=== PATIENT | male | born 1925 | race Caucasian/White ===

== ENCOUNTER 2016-12-24 11:44 | Day surgery (SDC) | payer MEDICARE, BC ==
[~2016-12-24 11:44] MED LIST: ACIP20TA19 PO; AMLO5TAB96 PO; CELE200 PO; COUM2TAB PO; DIOV320T PO; LEVO.075 PO; PACE200T4 PO; PRIN20TA2 PO; TERA5CAP34 PO; ZOCO40TA PO; [UNRECOGNIZED DRUG - OTHER]
[2016-12-24 12:57] VITALS: BP 178/78; PULSE 51; RESP 14; TEMP 97.2; O2SAT 97
[2016-12-24 13:35] VITALS: BP 180/84; PULSE 67; RESP 20; TEMP 97.5; O2SAT 99
[2016-12-24] MEDS ORDERED: LIDOCAINE HCL 1% 20 ML VIAL ONE (13:41)
[2016-12-24 13:50] VITALS: BP 187/85; PULSE 68; RESP 18; O2SAT 98
--- NOTE | 2016-12-24 15:14 | RADRPT ---
EXAM DATE/TIME: 12/24/2016 12:25 [facility] COMPARISON: No previous studies available for comparison. INDICATIONS : Right neck enlarged lymph node. MEDICAL HISTORY : Hypertension. Hypothyroidism. Hypercholesterolemia. SURGICAL HISTORY : Cardiac stents. Back surgery. ENCOUNTER: Subsequent ACUITY: 2 weeks PAIN SCORE: 10/10 LOCATION: Right neck. ORGAN: Right lymph node SPECIMENS: Three core specimen(s) submitted for pathologic evaluation. DEVICE: 18 gauge Temno needle Post procedure scanning reveals no hematoma or other complication. The possibility does exist that the tissue obtained will be non-diagnostic. If the sample is non-jorge gnostic a repeat biopsy or surgical biopsy may need to be performed. TECHNIQUE: 1. Ultrasound guidance for needle biopsy. 2. Needle biopsy. The risks, benefits and alternatives to the procedure were explained and verbal and written consent w as obtained. The site was prepped in sterile fashion. Full sterile technique was used, including ca p, mask, sterile gloves and gown and a large sterile sheet. Hand hygiene and 2% chlorhexidine and/or betadine/alcohol prep was utilized per protocol for cutaneous antisepsis. The skin and subcutaneous tissues were infiltrated with local anesthetic solution. Sterile gel and sterile probe cover were u tilized for ultrasound guidance. With the patient on the ultrasound table, images were obtained. A needle was advanced into the identified target and the number of specimens as above obtained and abreu bmitted for pathologic evaluation. The patient tolerated the procedure well and left the ultrasound suite in stable condition. CONCLUSION: Uncomplicated ultrasound guided needle biopsy of enlarged lymph node right posterior neck. Jt Cuellar MD on December 24, 2016 at 15:13 Board Certified Radiologist. This report was verified electronically.
== END 2016-12-24 14:15 | disposition home or self-care (01) ==
LOC: HRAD 11:44
PROVIDERS: ATTEND Internal Medicine
DX: R59.0 Localized enlarged lymph nodes (principal); I10 Essential (primary) hypertension; E78.00 Pure hypercholesterolemia, unspecified; E03.9 Hypothyroidism, unspecified
CPT/HCPCS: 38505; 76942; 88184; 88185; 88305

== ENCOUNTER 2017-06-29 13:14 | Observation (INO) | payer MEDICARE, BC ==
[~2017-06-29] VITALS: Ht 180.3 cm; Wt 67.3 kg
[2017-06-29] VITALS (7 sets, daily range): BP systolic 141–179; BP diastolic 67–80; PULSE 54–65; RESP 17–20; TEMP 97.2–98; O2SAT 95–100
[2017-06-29] MEDS ORDERED: SODIUM CHLORIDE 0.9% FLUSH 10 ML FLUSH IVF PRN (13:30)
[2017-06-29] MEDS ORDERED: HEPARIN SODIUM - IV 10,000 UNITS/10 ML VIAL IV ONE (13:30)
[2017-06-29] MEDS ORDERED: HEPARIN-D5W 25,000 U/250 ML 250 ML IV PRN (13:45)
[2017-06-29 14:00] LABS: AUTOMATED NEUTROPHIL # 5.3 TH/MM3 (1.8-7.7); BASOPHIL % 0.5 % (0.0-2.0); EOSINOPHIL # 0.1 TH/MM3 (0-0.4); EOSINOPHIL % 1.6 % (0.0-4.0); HEMATOCRIT 38.2 % (39.0-51.0); HEMOGLOBIN 13.2 GM/DL (13.0-17.0); LYMPH % 7.4 % (9.0-44.0); LYMPHOCYTE # 0.5 TH/MM3 (1.0-4.8); MEAN CELL VOLUME 84.8 FL (80.0-100.0); MEAN CORPUSCULAR HEMOGLOBIN 29.2 PG (27.0-34.0); MEAN CORPUSCULAR HGB CONC 34.5 % (32.0-36.0); MEAN PLATELET VOLUME 7.7 FL (7.0-11.0); MONO % 10.2 % (0.0-8.0); MONOCYTE # 0.7 TH/MM3 (0-0.9); NEUT % 80.3 % (16.0-70.0); PLATELET COUNT 232 TH/MM3 (150-450); RED CELL DISTRIBUTION WIDTH 14.7 % (11.6-17.2); WHITE BLOOD COUNT 6.5 TH/MM3 (4.0-11.0)
[2017-06-29 14:12] LABS: INTERNATIONAL NORMALIZED RATIO 1.2 RATIO; PROTHROMBIN TIME - PATIENT 11.7 SEC (9.8-11.6)
[2017-06-29 14:16] LABS: BLOOD UREA NITROGEN 21 MG/DL (7-18); CALCIUM 9.2 MG/DL (8.5-10.1); CHLORIDE 108 MEQ/L (98-107); GLOMERULAR FILTRATION RATE 70 ML/MIN (>89); GLUCOSE,RANDOM 104 MG/DL (74-106); MAGNESIUM 2.4 MG/DL (1.5-2.5); SODIUM (NA) 141 MEQ/L (136-145)
[2017-06-29 14:19] LABS: TROPONIN I LESS THAN 0.02 NG/ML (0.02-0.05)
--- NOTE | 2017-06-29 14:49 | PD ---
HPI Chief Complaint: Chest Pain Time Seen by Provider: 13:27 Travel History International Travel<30 days: No Contact w/Intl Traveler<30days: No Traveled to known affect area: No History of Present Illness HPI 89-year-old male came to the emergency room with history of sudden onset chest pain while he was in the waiting room to get his radiation therapy for his cancer. Patient points to her substernal area and said the pain started radiating towards his left chest. He got up and alerted one of the nurses who called 911. Patient was in [place] when this happened. EMS gave him sublingual nitroglycerin and aspirin. By the time patient arrived in the emergency room pain was 0. He denies any associated symptoms. Vital signs were stable. Patient has history of coronary artery disease and says that he had a stent put in about 3-4 years ago. Patient says his flexographic press operator is Dr. Cornejo. Vital signs were stable. PFSH Past Medical History Narrative Medical List of his past medical, surgical, social and family history is reviewed from the nursing note. Hx Anticoagulant Therapy: Yes Arthritis: Yes Blood Disorders: No Heart Rhythm Problems: Yes (ATR. FIB) Cancer: Yes (LUNG) Cardiovascular Problems: Yes Chemotherapy: Yes Endocrine: No Genitourinary: No Hypertension: Yes Immune Disorder: No Implanted Vascular Access Dvce: Yes Musculoskeletal: Yes Neurologic: Yes Psychiatric: No Reproductive: No Respiratory: Yes Radiation Therapy: Yes Tetanus Vaccination: < 5 Years Influenza Vaccination: Yes Past Surgical History Eye Surgery: Yes (VANESA. CATARACT EXTRACT.) Neurologic Surgery: Yes (CERVICAL FUSION) Other Surgery: Yes Social History Alcohol Use: Yes (WINE DAILY) Tobacco Use: No Substance Use: No Allergies-Medications (Allergen,Severity, Reaction): Coded Allergies: No Known Allergies (Verified Allergy, Unknown, 06/29/17) Comments No known drug allergies. Reported Meds & Prescriptions Reported Meds & Active Scripts Active Reported Diltiazem ER 24 HR 240 Mg Sybil 240 Mg PO DAILY Amiodarone (Amiodarone HCl) 200 Mg Tab 200 Mg PO DAILY Levothyroxine (Levothyroxine Sodium) 75 Mcg Tab 75 Mcg PO DAILY Warfarin 5 Mg Tab 5 Mg PO DAILY Aspirin Unknown Strength Tab 1 Tab PO DAILY Narrative Medication List of his home medications reviewed from the nursing note. Review of Systems Except as stated in HPI: all other systems reviewed are Neg Cardiovascular: Positive: Chest Pain or Discomfort Physical Exam Narrative GENERAL: Awake, alert, elderly, frail, anxious SKIN: Focused skin assessment warm/dry. HEAD: Atraumatic. Normocephalic. EYES: Pupils equal and round. No scleral icterus. No injection or drainage. ENT: No nasal bleeding or discharge. Mucous membranes pink and moist. NECK: Trachea midline. No JVD. CARDIOVASCULAR: Regular rate and rhythm. No murmur appreciated. RESPIRATORY: No accessory muscle use. Clear to auscultation. Breath sounds equal bilaterally. GASTROINTESTINAL: Abdomen soft, non-tender, nondistended. Hepatic and splenic margins not palpable. MUSCULOSKELETAL: No obvious deformities. No clubbing. No cyanosis. No edema. NEUROLOGICAL: Awake and alert. No obvious cranial nerve deficits. Motor grossly within normal limits. Normal speech. PSYCHIATRIC: Appropriate mood and affect; insight and judgment normal. Data Data Last Documented VS Orders Orders Electrocardiogram (06/29/17 13:29) Basic Metabolic Panel (Bmp) (06/29/17 13:29) Ckmb (Isoenzyme) Profile (06/29/17 13:29) Complete Blood Count With Diff (06/29/17 13:29) Magnesium (Mg) (06/29/17 13:29) Prothrombin Time / Inr (Pt) (06/29/17 13:29) Act Partial Throm Time (Ptt) (06/29/17 13:29) Troponin I (06/29/17 13:29) Ecg Monitoring (06/29/17 13:29) Bilateral Bp Monitoring (06/29/17 13:29) Iv Access Insert/Monitor (06/29/17 13:29) Oximetry (06/29/17 13:29) Oxygen Administration (06/29/17 13:29) Sodium Chloride 0.9% Flush (Ns Flush) (06/29/17 13:30) Chest, Pa & Lat (06/29/17 13:29) Heparin Inj (Heparin Inj) (06/29/17 13:30) Heparin Inj (Heparin Inj) (06/29/17 19:30) Heparin Inj (Heparin Inj) (06/29/17 19:30) Heparin-D5w 25,000 U/250 Ml (Heparin-D5w (06/29/17 13:45) Act Partial Throm Time (Ptt) (06/29/17 20:30) Admit Order (Ed Use Only) (06/29/17 14:50) Labs Laboratory Tests Test 06/29/17 13:45 White Blood Count 6.5 TH/MM3 Red Blood Count 4.50 MIL/MM3 Hemoglobin 13.2 GM/DL Hematocrit 38.2 % Mean Corpuscular Volume 84.8 FL Mean Corpuscular Hemoglobin 29.2 PG Mean Corpuscular Hemoglobin Concent 34.5 % Red Cell Distribution Width 14.7 % Platelet Count 232 TH/MM3 Mean Platelet Volume 7.7 FL Neutrophils (%) (Auto) 80.3 % Lymphocytes (%) (Auto) 7.4 % Monocytes (%) (Auto) 10.2 % Eosinophils (%) (Auto) 1.6 % Basophils (%) (Auto) 0.5 % Neutrophils # (Auto) 5.3 TH/MM3 Lymphocytes # (Auto) 0.5 TH/MM3 Monocytes # (Auto) 0.7 TH/MM3 Eosinophils # (Auto) 0.1 TH/MM3 Basophils # (Auto) 0.0 TH/MM3 CBC Comment DIFF FINAL Differential Comment Prothrombin Time 11.7 SEC Prothromb Time International Ratio 1.2 RATIO Activated Partial Thromboplast Time 25.5 SEC Blood Urea Nitrogen 21 MG/DL Creatinine 1.00 MG/DL Random Glucose 104 MG/DL Calcium Level 9.2 MG/DL Magnesium Level 2.4 MG/DL Sodium Level 141 MEQ/L Potassium Level 3.8 MEQ/L Chloride Level 108 MEQ/L Carbon Dioxide Level 22.0 MEQ/L Anion Gap 11 MEQ/L Estimat Glomerular Filtration Rate 70 ML/MIN Total Creatine Kinase 70 U/L Troponin I LESS THAN 0.02 NG/ML MDM Medical Decision Making Medical Screen Exam Complete: Yes Emergency Medical Condition: Yes Medical Record Reviewed: Yes Interpretation(s) Twelve-lead EKG was reviewed by me. Normal sinus rhythm, normal axis, right bundle branch block, septal ST depressions that are new since 2008 EKG. Heart rate of 62 bpm. Differential Diagnosis ACS, non-STEMI Narrative Course 2:45 PM I discussed the case after looking at the EKG with patient's flexographic press operator Dr. Aggarwal. I started the patient on heparin bolus and drip and the flexographic press operator was in agreement with this plan. He wanted the patient to be admitted to the hospitalist service and he will consult on the patient. Blood test results of back and they're within acceptable limits. I discussed the case with the hospitalist was accepted the patient. Critical Care Narrative Aggregate critical care time was 30 minutes. Time to perform other separately billable procedures was not included in the critical care time. My time did not include minutes spent treating any other patients simultaneously or on activities that did not directly contribute to the patient's treatment. The services I provided to this patient were to treat and/or prevent clinically significant deterioration that could result in: ACS, heparin bolus and drip I provided critical care services requiring my management, as noted below: Chart data review, documentation time, medication orders and management, vital sign assessments/reviewing monitor data, ordering and reviewing lab tests, ordering and interpreting/reviewing x-rays and diagnostic studies, care of the patient and discussion of the patient with the admitting physicians. Procedures EKG Prior to Arrival: Yes Physician Communication Physician Communication Dr. Aggarwal Diagnosis Primary Impression: Chest pain Qualified Codes: R07.9 - Chest pain, unspecified Additional Impression: History of coronary artery disease Admitting Information Admitting Physician Requests: Observation Scripts Isosorbide Mononitrate ER (Isosorbide Mononitrate ER) 30 Mg Sybil 30 MG PO DAILY@07 for Chest Pain for 30 Days, #30 TAB Prov: Omid Singh MD 07/01/17 Atorvastatin (Atorvastatin) 80 Mg Tab 80 MG PO DAILY for ACS for 30 Days, #30 TAB Prov: Omid Singh MD 07/01/17 Clopidogrel (Plavix) 75 Mg Tab 75 MG PO DAILY for ACS for 30 Days, #30 TAB 1 Refill Prov: Omid Singh MD 07/01/17 Joyce Pisano MD Jun 29, 2017 14:49
[2017-06-29] MEDS ORDERED: ACETAMINOPHEN 325 MG TAB PO PRN (15:00)
[2017-06-29] MEDS ORDERED: DOCUSATE SODIUM 100 MG CAP PO PRN (15:00)
[2017-06-29] MEDS ORDERED: NITROGLYCERIN 0.4 MG SL 25 TABS/BTL SL PRN (15:00)
[2017-06-29] MEDS ORDERED: MORPHINE SULFATE 4 MG/ML INJ IV PUSH PRN (15:00)
--- NOTE | 2017-06-29 15:00 | RADRPT ---
EXAM DATE/TIME: 06/29/2017 14:26 [facility] COMPARISON: No previous studies available for comparison. INDICATIONS : Chest pain and cough. MEDICAL HISTORY : Pt. is undergoing lung cancer treatment. SURGICAL HISTORY : None. ENCOUNTER: Initial ACUITY: 1 day PAIN SCORE: 9/10 LOCATION: Bilateral chest FINDINGS: PA and lateral views of the chest demonstrate the lungs to be symmetrically aerated without evidence of mass, infiltrate or effusion. The cardiomediastinal contours are unremarkable. Osseous structure s are intact. CONCLUSION: No acute disease. Cecilio Poole Jr., MD on June 29, 2017 at 14:58 Board Certified Radiologist. This report was verified electronically.
[2017-06-29] MEDS ORDERED: DILT1TAB4 PO (15:28)
[2017-06-29] MEDS ORDERED: LEVO75TA3 PO (15:28)
[2017-06-29] MEDS ORDERED: AMLO-168 PO (15:28)
[2017-06-29] MEDS ORDERED: WARF-23 PO (15:28)
[2017-06-29] MEDS ORDERED: AMIO200T PO (15:28)
[2017-06-29] MEDS ORDERED: ASPI-183 PO (15:28)
[2017-06-29 16:32] LABS: TROPONIN I LESS THAN 0.02 NG/ML (0.02-0.05)
--- NOTE | 2017-06-29 17:57 | HHI.HP ---
[facility] Jasmyn Edgar D.O. Admission Diagnosis chest pain, history of coronary artery disease Diagnoses: Chief Complaint: Chest pain Travel History International Travel<30 Days: No Contact w/Intl Traveler <30 Da: No Traveled to Known Affected Are: No History of Present Illness 89 years old male presented to the ED with sudden onset chest pain 10 out of 10 with no transfer no dizziness no nausea or vomiting positive short of breath no diaphoresis, in general patient is extremely poor historian he always answer "I do not know". Patient has a past medical history of coronary artery disease with stenting he reported having history of cancer but he was not sure where he does know it is in his had, possibly head and neck versus brain he also mentioned lung tumor. 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 fib Lung cancer, questionable head and neck cancer Arthritis Hypertension Port implanted He is on chemotherapy Patient also mentioned history of left pleural effusion Past Surgical History Cataract Cervical fusion Allergies: Coded Allergies: No Known Allergies (Verified Allergy, Unknown, 06/29/17) Family History Mother with heart attack, father had a brain tumor Social History No tobacco or illicit drug abuse, patient admitted drinking wine every day Physical Exam Vital Signs Vital Signs Date Time Temp Pulse Resp B/P (MAP) Pulse Ox O2 Delivery O2 Flow Rate FiO2 06/29/17 13:40 97.6 61 17 163/76 (105) 100 Room Air 168/79 (108) 06/29/17 13:35 97.6 61 17 163/76 (105) 100 Room Air 06/29/17 13:31 100 Room Air 06/29/17 13:31 97.6 61 17 163/76 (105) 100 Room Air 06/29/17 13:29 61 17 100 Room Air 06/29/17 13:24 97.6 61 17 163/76 (105) 100 Physical Exam GENERAL: This is a frail 89 years old male in no acute distress SKIN: No rashes, warm and dry HEAD: Atraumatic. Normocephalic. EYES: Pupils equal round and reactive. Extraocular motions intact. No scleral icterus. ENT: Nose without bleeding, or drainage, Airway patent. NECK: Trachea midline. Supple CARDIOVASCULAR: Regular rate and rhythm without murmurs, gallops, or rubs. RESPIRATORY: Fair air entry bilaterally. No wheezes, rales, or rhonchi. GASTROINTESTINAL: Abdomen soft, non-tender, nondistended. Positive bowel sounds MUSCULOSKELETAL: Extremities without clubbing, cyanosis, or edema. Pedal pulses appreciated NEUROLOGICAL: Awake and alert. Moves all extremity. Normal speech.no focal neurological deficit Laboratory Laboratory Tests Test 06/29/17 13:45 06/29/17 15:28 White Blood Count 6.5 Red Blood Count 4.50 Hemoglobin 13.2 Hematocrit 38.2 Mean Corpuscular Volume 84.8 Mean Corpuscular Hemoglobin 29.2 Mean Corpuscular Hemoglobin Concent 34.5 Red Cell Distribution Width 14.7 Platelet Count 232 Mean Platelet Volume 7.7 Neutrophils (%) (Auto) 80.3 Lymphocytes (%) (Auto) 7.4 Monocytes (%) (Auto) 10.2 Eosinophils (%) (Auto) 1.6 Basophils (%) (Auto) 0.5 Neutrophils # (Auto) 5.3 Lymphocytes # (Auto) 0.5 Monocytes # (Auto) 0.7 Eosinophils # (Auto) 0.1 Basophils # (Auto) 0.0 CBC Comment DIFF FINAL Differential Comment Prothrombin Time 11.7 Prothromb Time International Ratio 1.2 Activated Partial Thromboplast Time 25.5 Blood Urea Nitrogen 21 Creatinine 1.00 Random Glucose 104 Calcium Level 9.2 Magnesium Level 2.4 Sodium Level 141 Potassium Level 3.8 Chloride Level 108 Carbon Dioxide Level 22.0 Anion Gap 11 Estimat Glomerular Filtration Rate 70 Total Creatine Kinase 70 65 Troponin I LESS THAN 0.02 LESS THAN 0.02 Result Diagram: 06/29/17 1345 06/29/17 1345 Imaging Last Impressions Chest X-Ray 06/29/17 132 Signed Impressions: Service Date/Time: Thursday, June 29, 2017 14:26 - CONCLUSION: No acute disease. MD Michelle Mota Jr. VTE Risk Assessment Caprini VTE Risk Assessment: Mod/High Risk (score >= 2) Caprini Risk Assessment Model Point Value = 1 Point Value = 2 Point Value = 3 Point Value = 5 Age 41-60 Minor surgery BMI > 25 kg/m2 Swollen legs Varicose veins or History of unexplained or recurrent spontaneous Oral contraceptives or hormone replacement Sepsis (< 1 month) Serious lung disease, including pneumonia (< 1 month) Abnormal pulmonary function Acute myocardial infarction Congestive heart failure (< 1 month) History of inflammatory bowel disease Medical patient at bed rest Age 61-74 Arthroscopic surgery Major open surgery (> 45 min) Laparoscopic surgery (> 45 min) Malignancy Confined to bed (> 72 hours) Immobilizing plaster cast Central venous access Age >= 75 History of VTE Family history of VTE Factor V Leiden Prothrombin [id number] Lupus anticoagulant Anticardiolipin antibodies Elevated serum homocysteine Heparin-induced thrombocytopenia Other congenital or acquired thrombophilia Stroke (< 1 month) Elective arthroplasty Hip, pelvis, or leg fracture Acute spinal cord injury (< 1 month) Prophylaxis Regimen Total Risk Factor Score Risk Level Prophylaxis Regimen 0-1 Low Early ambulation 2 Moderate Order ONE of the following: *Sequential Compression Device (SCD) *Heparin 5000 units SQ BID 3-4 Higher Order ONE of the following medications: *Heparin 5000 units SQ TID *Enoxaparin/Lovenox 40 mg SQ daily (WT < 150 kg, CrCl > 30 mL/min) *Enoxaparin/Lovenox 30 mg SQ daily (WT < 150 kg, CrCl > 10-29 mL/min) *Enoxaparin/Lovenox 30 mg SQ BID (WT < 150 kg, CrCl > 30 mL/min) AND/OR *Sequential Compression Device (SCD) 5 or more Highest Order ONE of the following medications: *Heparin 5000 units SQ TID (Preferred with Epidurals) *Enoxaparin/Lovenox 40 mg SQ daily (WT < 150 kg, CrCl > 30 mL/min) *Enoxaparin/Lovenox 30 mg SQ daily (WT < 150 kg, CrCl > 10-29 mL/min) *Enoxaparin/Lovenox 30 mg SQ BID (WT < 150 kg, CrCl > 30 mL/min) AND *Sequential Compression Device (SCD) Assessment and Plan Assessment and Plan 89 years old male with history of disseminated cancer as per the patient, on chemotherapy brought to the ED with acute sharp chest pain Rule out ACS 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 Aggarwal who is the patient package checker, it was called from ED, he recommended heparin drip Chest x-ray unremarkable If cardiac workup is negative I will consult oncology, it may be pleuritis due to radiation Continue home medication Diltiazem, amlodipine and valsartan, aspirin Patient is on warfarin however INR is 1.2, started on heparin drip Jeff Bauman MD Jun 29, 2017 17:57
[2017-06-29] MEDS ORDERED: AMIODARONE 200 MG TAB PO SCH (18:00)
--- NOTE | 2017-06-29 18:44 | MB ---
cc: Tim Aggarwal MD DATE: 06/29/2017 REASON FOR CONSULTATION: I was asked to evaluate the patient with chest pain syndrome and history of coronary artery disease. 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 Unfortunately, he has recurrent left upper lung cancer. This morning, he was [facility] waiting to have his radiation treatment. He developed rapidly progressive shortness of breath and chest pain across his left precordium. The pain was an achy discomfort, prompting him to notify the attendant nurse. He was given a nitroglycerin and aspirin by EMS. His chest pain resolved upon arrival to the emergency room. ER evaluation significant for EKG sinus rhythm, right bundle branch block, diffuse nonspecific ST-T abnormalities. First troponin level is negative for acute coronary syndrome. MEDICATIONS PRIOR TO ADMISSION: 1. Warfarin 5 mg daily. 2. Amiodarone 200 mg daily. 3. Diltiazem ER 240 mg daily. 4. Atorvastatin 20 mg daily. 5. Vicodin 10/300 mg q.6 hours p.r.n. 6. Aciphex 20 mg daily. 7. Valsartan 160 mg daily. 8. Rabeprazole 10 mg daily. 9. Naprosyn 500 mg p.r.n. 10. [place] 3 fatty acid supplements. 11. Synthroid 50 mcg daily. 12. Hydrocodone/acetaminophen 10/650 mg p.r.n. ALLERGIES: NO KNOWN DRUG ALLERGIES. PAST MEDICAL HISTORY: As above. He also has history of hypothyroidism. PAST CARDIAC HISTORY: PTCA, bare metal stent distal LAD 02/2011. Last stress myocardial perfusion imaging study 10/2012 negative for ischemia. SOCIAL HISTORY: He does not smoke. He drinks a glass of wine daily. No illicit drug use. He lives with his . REVIEW OF SYSTEMS: As above, 12-point review of systems reviewed and noted. No recent fever, chills, cough and sputum production. No recent gastrointestinal and genitourinary symptoms. He is receiving chemotherapy for recurrent lung cancer. PAST SURGICAL HISTORY: As above, status post cervical fusion. PHYSICAL EXAMINATION: GENERAL: No acute distress. No chest pain, comfortable respirations. VITAL SIGNS: Temperature 97.6, pulse 61, respirations 17, blood pressure 163/76, O2 saturation room air 100%. HEENT: Anicteric. PERRL. No xanthelasmas. NECK: Flat JVD. No carotid bruits. LUNGS: Clear to auscultation. No chest wall tenderness. HEART: Irregular rate and rhythm, II/ systolic murmur left lower sternal border. ABDOMEN: Soft and nontender. EXTREMITIES: Without peripheral edema. LABORATORY DATA: WBC 6.5, hemoglobin 13.2, hematocrit 38.2, platelet count is 232,000. PT is 11.7, INR is 1.2, BUN 21, creatinine 1.0, sodium 141, potassium 3.8, chloride 108, anion gap is 11. Troponin less than 0.02. IMPRESSION: 1. Chest pain syndrome with typical and atypical features for angina. 2. History of known coronary artery disease. 3. Paroxysmal atrial fibrillation, remains in sinus rhythm. 4. Hypertension. 5. Hypercholesterolemia. 6. Mild cardiomyopathy, ejection fraction 40%. 7. Recurrent lung cancer, receiving chemotherapy. PLAN: 1. Continue to trend troponin level. 2. Continue IV heparin. 3. Nitroglycerin paste 1 inch q.6 hours. 4. Continue amiodarone, diltiazem, atorvastatin and valsartan as listed. 5. Discussed with the patient he may need cardiac catheterization if he rules in for acute coronary syndrome versus continued medical management in light of his comorbidities. Thank you for allowing me to contribute the patient's care. Thank you for this consultation. MD ALANIS PonceV/KD , 05:57 PM , 06:43 PM
[2017-06-29] MEDS ORDERED: HEPARIN SODIUM - IV 10,000 UNITS/10 ML VIAL IV PRN ×2 (19:30)
[2017-06-29 23:00] LABS: CHOLESTEROL 177 MG/DL (120-200); TRIGLYCERIDES 110 MG/DL (42-150)
[2017-06-29 23:02] LABS: CHOLESTEROL/ HDL RATIO 4.82 RATIO; HDL CHOLESTEROL 36.7 MG/DL (40.0-60.0); LDL CHOLESTEROL 118 MG/DL (0-99); TROPONIN I LESS THAN 0.02 NG/ML (0.02-0.05)
[2017-06-30] VITALS (9 sets, daily range): BP systolic 108–189; BP diastolic 59–88; PULSE 53–60; RESP 18–20; TEMP 97.2–98.3; O2SAT 93–97
[2017-06-30 04:16] LABS: TROPONIN I LESS THAN 0.02 NG/ML (0.02-0.05)
[2017-06-30] MEDS: NITROGLYCERIN 2% OINT 1 GM PACKET TOPICAL SCH ×4 (05:03→18:12)
[2017-06-30] MEDS: LEVOTHYROXINE SODIUM 75 MCG TAB PO SCH (05:03)
[2017-06-30] MEDS ORDERED: LEVOTHYROXINE SODIUM 50 MCG TAB PO SCH (06:00)
[2017-06-30] MEDS ORDERED: VALSARTAN 160 MG TAB PO SCH (09:00)
[2017-06-30] MEDS ORDERED: NON-FORMULARY DRUG (Amlodipine-Valsartan 1 TAB) PO SCH (09:00)
[2017-06-30] MEDS ORDERED: ASPIRIN EC 325 MG TABEC PO SCH (09:00)
[2017-06-30] MEDS ORDERED: ASPIRIN PO SCH (09:00)
[2017-06-30] MEDS ORDERED: DILTIAZEM-CD 240 MG CAP ER PO SCH (09:00)
[2017-06-30] MEDS: DILTIAZEM-CD 240 MG CAP ER PO SCH (09:24)
[2017-06-30] MEDS: AMIODARONE 200 MG TAB PO SCH (09:24)
[2017-06-30] MEDS: ATORVASTATIN 80 MG TAB PO SCH (09:24)
[2017-06-30 10:23] LABS: BICARBONATE 24.1 MEQ/L (21.0-32.0); CALCIUM 8.7 MG/DL (8.5-10.1)
--- NOTE | 2017-06-30 14:41 | HHI.PR ---
Subjective Remarks Patient reported feeling chest pressure 5 out of 10 No diaphoresis, no short of breath, she is on IV heparin possible going to cath by Dr. Aggarwal cardiac enzymes still negative, patient is afebrile Objective Vitals Vital Signs Date Time Temp Pulse Resp B/P (MAP) Pulse Ox O2 Delivery O2 Flow Rate FiO2 06/30/17 12:00 97.8 60 18 108/59 (75) 95 06/30/17 08:00 97.2 60 18 161/74 (103) 96 06/30/17 04:00 56 06/30/17 04:00 97.5 56 18 189/88 (121) 97 06/30/17 04:00 Room Air 06/30/17 01:57 Room Air 06/30/17 00:00 53 06/29/17 23:20 98.0 54 18 141/80 (100) 97 06/29/17 20:00 65 06/29/17 20:00 Room Air 06/29/17 20:00 97.6 60 18 145/67 (93) 95 06/29/17 17:10 97.2 57 20 179/80 (113) 96 I/O 06/29/17 06/29/17 06/29/17 06/30/17 06/30/17 06/30/17 07:00 15:00 23:00 07:00 15:00 23:00 Intake Total 120 ml Output Total 350 ml Balance -230 ml Intake Oral 120 ml Output Urine Total 350 ml # Bowel Movements 0 Result Diagram: 06/29/17 1345 06/30/17 0920 Objective Remarks GENERAL: This is a frail 89 years old male in no acute distress SKIN: No rashes, warm and dry HEAD: Atraumatic. Normocephalic. EYES: Pupils equal round and reactive. Extraocular motions intact. No scleral icterus. ENT: Nose without bleeding, or drainage, Airway patent. NECK: Trachea midline. Supple CARDIOVASCULAR: Regular rate and rhythm without murmurs, gallops, or rubs. RESPIRATORY: Fair air entry bilaterally. No wheezes, rales, or rhonchi. GASTROINTESTINAL: Abdomen soft, non-tender, nondistended. Positive bowel sounds MUSCULOSKELETAL: Extremities without clubbing, cyanosis, or edema. Pedal pulses appreciated NEUROLOGICAL: Awake and alert. Moves all extremity. 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, it was called from ED, he recommended heparin drip, appreciate their help, possible plan for heart cath later on Regular protocol to rule out ACS with aspirin, oxygen, morphine, negative cardiac enzyme, serial EKG no acute changes EKG in ED personally reviewed by me showed left bundle branch block with inverted T waves on precordial lead but it is not new from previous EKG in 2008 Chest x-ray unremarkable If cardiac workup is negative consult oncology, it may be pleuritis due to radiation Continue home medication Diltiazem, amlodipine and valsartan, aspirin Patient is on warfarin however INR is 1.2, started on heparin drip Jeff Bauman MD Jun 30, 2017 14:41
--- NOTE | 2017-06-30 18:39 | PD.CARD.PN ---
Subjective Subjective Remarks FEELS BETTER NO COMPLAINTS OF CHEST PAIN OR SOB TROPONINS NEGATIVE FOR ACS HE WANTS CONSERVATIVE EXPECTANT MEDICAL MGT Objective Medications Current Medications Medications (Trade) Dose Ordered Sig/Alber Route Start Time Stop Time Status Last Admin (NS Flush) 2 ml UNSCH PRN IVF 06/29/17 13:30 (Heparin Inj) 5,000 units UNSCH PRN IV 06/29/17 19:30 (Heparin Inj) 2,500 units UNSCH PRN IV 06/29/17 19:30 Heparin Sodium/ Dextrose 250 ml @ 8 mls/hr TITRATE PRN IV 06/29/17 13:45 06/29/17 15:05 (Ecotrin Ec) 325 mg DAILY PO 06/30/17 09:00 06/30/17 09:24 (Nitrostat Sl) 0.4 mg Q5M PRN SL 06/29/17 15:00 (Morphine Inj) 2 mg Q30M PRN IV PUSH 06/29/17 15:00 (Tylenol) 650 mg Q6H PRN PO 06/29/17 15:00 (Colace) 100 mg BID PRN PO 06/29/17 15:00 (Nitroglycerin 2% Oint) 1 inch Q6HR TOPICAL 06/29/17 18:00 06/30/17 18:12 (Lipitor) 80 mg DAILY PO 06/30/17 09:00 06/30/17 09:24 (Diovan) 160 mg DAILY PO 06/30/17 09:00 06/30/17 09:24 (Cordarone) 200 mg DAILY PO 06/30/17 09:00 06/30/17 09:24 (Cardizem Cd) 240 mg DAILY PO 06/30/17 09:00 06/30/17 09:24 (Synthroid) 75 mcg DAILY@0600 PO 06/30/17 06:00 06/30/17 05:03 (Norvasc) 10 mg DAILY PO 06/30/17 09:00 06/30/17 09:24 Vital Signs / I&O Vital Signs Date Time Temp Pulse Resp B/P (MAP) Pulse Ox O2 Delivery O2 Flow Rate FiO2 06/30/17 12:00 97.8 60 18 108/59 (75) 95 06/30/17 08:00 97.2 60 18 161/74 (103) 96 06/30/17 04:00 56 06/30/17 04:00 97.5 56 18 189/88 (121) 97 06/30/17 04:00 Room Air 06/30/17 01:57 Room Air 06/30/17 00:00 53 06/29/17 23:20 98.0 54 18 141/80 (100) 97 06/29/17 20:00 65 06/29/17 20:00 Room Air 06/29/17 20:00 97.6 60 18 145/67 (93) 95 I/O 06/29/17 06/29/17 06/29/17 06/30/17 06/30/17 06/30/17 07:00 15:00 23:00 07:00 15:00 23:00 Intake Total 120 ml Output Total 350 ml Balance -230 ml Intake Oral 120 ml Output Urine Total 350 ml # Bowel Movements 0 Physical Exam NAD ANICTERIC, JIAN FLAT JVDS LUNGS CLEAR RR, 2/6 LLSB MURMUR ABD SOFT EXTREMITIES BENIGN Laboratory Laboratory Tests Test 06/29/17 21:22 06/30/17 03:09 06/30/17 09:20 Activated Partial Thromboplast Time 54.8 SEC 46.2 SEC Total Creatine Kinase 58 U/L 60 U/L Troponin I LESS THAN 0.02 NG/ML LESS THAN 0.02 NG/ML Triglycerides Level 110 MG/DL Cholesterol Level 177 MG/DL LDL Cholesterol 118 MG/DL HDL Cholesterol 36.7 MG/DL Cholesterol/HDL Ratio 4.82 RATIO Blood Urea Nitrogen 19 MG/DL Creatinine 1.00 MG/DL Random Glucose 132 MG/DL Calcium Level 8.7 MG/DL Sodium Level 141 MEQ/L Potassium Level 3.5 MEQ/L Chloride Level 109 MEQ/L Carbon Dioxide Level 24.1 MEQ/L Anion Gap 8 MEQ/L Estimat Glomerular Filtration Rate 70 ML/MIN Assessment and Plan Assessment and Plan CHEST PAIN NO ACS LUNG CANCER PLAN: OK TO DC IV HEPARIN AND NTGP PLAVIX 75 MG QD IMDUR 30 MG QD AMLODIPINE DC'D, ON CARDIZEM OK TO DC IN AM WITH UNEVENTFUL EVENING Tim Aggarwal MD Jun 30, 2017 18:39
[2017-06-30] MEDS: CLOPIDOGREL 75 MG TAB PO SCH (22:30)
--- NOTE | 2017-06-30 23:00 | EKG ---
Date Performed: 06/29/2017 Time Performed: 13:24:50 PTAGE: 89 years EKG: Sinus rhythm RIGHT BUNDLE BRANCH BLOCK ABNORMAL ECG PREVIOUS TRACING : 04/23/2008 10.41 Since the previous tracing, no significant change noted DOCTOR: Hugh Wynn Interpretating Date/Time 06/30/2017 22:59:24
[2017-07-01] VITALS: BP_SYST 113; BP_SYST 140; BP_DIAS 104; BP_DIAS 62; PULSE 146; PULSE 52; RESP 20; TEMP 97.6; TEMP 99.8; O2SAT 96
[2017-07-01] MEDS: NITROGLYCERIN 2% OINT 1 GM PACKET TOPICAL SCH ×2 (00:53→06:38)
[2017-07-01 04:00] VITALS: BP 156/81; PULSE 61; RESP 20; TEMP 97.3; O2SAT 98
[2017-07-01] MEDS: LEVOTHYROXINE SODIUM 75 MCG TAB PO SCH (06:38)
[2017-07-01] MEDS ORDERED: ISOSORBIDE MONONITRATE 30 MG CR TAB (IMDUR) PO SCH (07:00)
[2017-07-01 08:08] VITALS: BP 125/61; PULSE 54; RESP 18; TEMP 97.3; O2SAT 97
[2017-07-01] MEDS: DILTIAZEM-CD 240 MG CAP ER PO SCH (08:18)
[2017-07-01] MEDS: AMIODARONE 200 MG TAB PO SCH (08:19)
[2017-07-01] MEDS: ATORVASTATIN 80 MG TAB PO SCH (08:19)
[2017-07-01] MEDS: CLOPIDOGREL 75 MG TAB PO SCH (08:20)
[2017-07-01] MEDS ORDERED: ASPIRIN EC 81 MG TABEC PO SCH (09:00)
[2017-07-01 10:20] VITALS: O2SAT 94
--- NOTE | 2017-07-01 10:39 | HHI.PR ---
Subjective Remarks telemetry - in SR no chest pain ro shortness of breath complains of headaches Objective Vitals Vital Signs Date Time Temp Pulse Resp B/P (MAP) Pulse Ox O2 Delivery O2 Flow Rate FiO2 07/01/17 09:42 Room Air 07/01/17 08:08 97.3 54 18 125/61 (82) 97 07/01/17 04:00 97.3 61 20 156/81 (106) 98 07/01/17 00:00 97.6 52 20 113/62 (79) 96 06/30/17 20:00 Room Air 06/30/17 20:00 98.3 57 20 128/62 (84) 93 06/30/17 16:01 55 06/30/17 16:00 97.7 59 18 116/59 (78) 96 06/30/17 12:00 97.8 60 18 108/59 (75) 95 06/30/17 11:56 54 I/O 06/30/17 06/30/17 06/30/17 07/01/17 07/01/17 07/01/17 07:00 15:00 23:00 07:00 15:00 23:00 Intake Total 120 ml 360 ml 200 ml Output Total 350 ml 525 ml 50 ml Balance -230 ml -165 ml 150 ml Intake Oral 120 ml 360 ml 200 ml Output Urine Total 350 ml 525 ml 50 ml # Bowel Movements 0 0 0 Result Diagram: 06/29/17 1345 06/30/17 0920 Imaging Last Impressions Chest X-Ray 06/29/17 1329 Signed Impressions: Service Date/Time: Thursday, June 29, 2017 14:26 - CONCLUSION: No acute disease. Cecilio Poole Jr., MD Objective Remarks awake and alert, oriented x 3 anicteric lungs- clear regular rhyhtm abdomen soft, nontender extremities no edema neuro exam- unremarkable A/P Assessment and Plan 89 years old male with history of disseminated cancer as per the patient, on chemotherapy brought to the ED with acute sharp chest pain Chest pain syndrome with history of CAD with stent Hypertension Hyperlipidemia History of paroxysmal a fib- in SR -seen by Cardiology - conservative management - ASa/Plavix/Imdur/statins/CCB/amiodarone - will s/w Dr. 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
[2017-07-01] MEDS ORDERED: PLAV75TA29 PO (11:10)
[2017-07-01] MEDS ORDERED: ISOS30TA3 PO (11:10)
[2017-07-01] MEDS ORDERED: ATOR80TA45 PO (11:10)
--- NOTE | 2017-07-01 11:12 | HHI.DS ---
Discharge Summary Admission Date Jun 29, 2017 at 14:52 Discharge Date: Jul 01, 2017 Admitting Diagnosis chest pain, history of coronary artery disease Brief History - From Admission 89 years old male presented to the ED with sudden onset chest pain 10 out of 10 with no transfer no dizziness no nausea or vomiting positive short of breath no diaphoresis, in general patient is extremely poor historian he always answer "I do not know". Patient has a past medical history of coronary artery disease with stenting he reported having history of cancer but he was not sure where he does know it is in his had, possibly head and neck versus brain he also mentioned lung tumor. 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 doubt to be suspected to be metastatic from a previous skin cancer PET scan showed right upper lobe nodule medullary with an SUV due to previous PET scan on January 2017 CBC/BMP: 06/29/17 1345 06/30/17 0920 Significant Findings Laboratory Tests Test 06/29/17 13:45 06/29/17 15:28 06/29/17 21:22 06/30/17 03:09 Hematocrit 38.2 % (39.0-51.0) Neutrophils (%) (Auto) 80.3 % (16.0-70.0) Lymphocytes (%) (Auto) 7.4 % (9.0-44.0) Monocytes (%) (Auto) 10.2 % (0.0-8.0) Lymphocytes # (Auto) 0.5 TH/MM3 (1.0-4.8) Prothrombin Time 11.7 SEC (9.8-11.6) Blood Urea Nitrogen 21 MG/DL (7-18) Chloride Level 108 MEQ/L (98-107) Estimat Glomerular Filtration Rate 70 ML/MIN (>89) Troponin I LESS THAN 0.02 NG/ML LESS THAN 0.02 NG/ML LESS THAN 0.02 NG/ML LESS THAN 0.02 NG/ML Activated Partial Thromboplast Time 54.8 SEC (24.3-30.1) 46.2 SEC (24.3-30.1) LDL Cholesterol 118 MG/DL (0-99) HDL Cholesterol 36.7 MG/DL (40.0-60.0) Test 06/30/17 09:20 07/01/17 07:55 Blood Urea Nitrogen 19 MG/DL (7-18) Random Glucose 132 MG/DL (74-106) Chloride Level 109 MEQ/L (98-107) Estimat Glomerular Filtration Rate 70 ML/MIN (>89) Imaging Last Impressions Chest X-Ray 06/29/17 1329 Signed Impressions: Service Date/Time: Thursday, June 29, 2017 14:26 - CONCLUSION: No acute disease. Cecilio Poole Jr., MD PE at Discharge awake and alert, oriented x 3 anicteric lungs- clear regular rhyhtm abdomen soft, nontender extremities no edema neuro exam- unremarkable Pt update on day of discharge in SR no chest pains or shortness of breath headache resolved with wiping off nitrates started on po Imdur Hospital Course 89 years old male with history of disseminated cancer as per the patient, on chemotherapy brought to the ED with acute sharp chest pain Chest pain syndrome with history of CAD with stent Hypertension Hyperlipidemia History of paroxysmal a fib- in SR -seen by Cardiology - conservative management - ASa/Plavix/Imdur/statins/CCB/amiodarone - dada Aggarwal- - continue coumadin - OP ff up- per patient Coumadin comes and check his INR- q Wednesday Headache- likelu from nitrates - DC Nitrol paste- patient started on Imdur po 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 on chemoradiation therapy Hypothyroidism DVT prophylaxis- on coumadin ,- ambulating Pt Condition on Discharge: Stable Discharge Disposition: Disch w/ Home Health Serv Discharge Time: > 30 minutes Discharge Instructions DIET: Follow Instructions for: Heart Healthy Diet, Coumadin (Warfarin) Diet Speech Therapy-Diet Recommends: Regular Activities you can perform: Weight Bearing as Noemy Follow up Referrals: Cardiology - 1 Week with Tim Aggarwal MD PCP Follow-up - 3-5 Days with Светлана New Medications: Atorvastatin (Atorvastatin) 80 Mg Tab 80 MG PO DAILY for ACS for 30 Days, #30 TAB Clopidogrel (Plavix) 75 Mg Tab 75 MG PO DAILY for ACS for 30 Days, #30 TAB 1 Refill Isosorbide Mononitrate ER (Isosorbide Mononitrate ER) 30 Mg Sybil 30 MG PO DAILY@07 for Chest Pain for 30 Days, #30 TAB Continued Medications: Amiodarone (Amiodarone) 200 Mg Tab 200 MG PO DAILY for Regulate Heart Beat, #30 TAB 0 Refills Aspirin (Aspirin) Unknown Strength Tab 1 TAB PO DAILY, #30 TAB 0 Refills Diltiazem ER 24 HR (Diltiazem ER 24 HR) 240 Mg Sybil 240 MG PO DAILY, #30 TAB 0 Refills Levothyroxine (Levothyroxine) 75 Mcg Tab 75 MCG PO DAILY for Thyroid, #30 TAB 0 Refills Warfarin (Warfarin) 5 Mg Tab 5 MG PO DAILY for Blood Clot Prevention, #30 TAB 0 Refills Discontinued Medications: Amlodipine-Valsartan (Amlodipine-Valsartan) 10-160 Mg Tab 1 TAB PO DAILY for Blood Pressure Management, #30 TAB 0 Refills Omid Singh MD Jul 01, 2017 11:12
--- NOTE | 2017-07-01 11:17 | HHI.FF ---
Face to Face Verification Diagnosis: (1) History of coronary artery disease (2) paroxmal a fib his Home Health Nursing Order: Medical education Signs/symptoms of disease process Medication education-adverse effect Nursing assessment with vital signs I have seen patient Claudia Altman on 07/01/17. My clinical findings support the need for the requested home health care services because: Ltd mobility - disease progression Need for psychosocial assistance I certify that my clinical findings support that this patient is homebound because: Need for psychosocial assistance Omid Singh MD Jul 01, 2017 11:17
[2017-07-01 12:00] VITALS: PULSE 46
[2017-07-01 12:08] VITALS: BP 118/62; PULSE 54; RESP 18; TEMP 97.2; O2SAT 96
== END 2017-07-01 15:05 | disposition home health service (06) ==
LOC: NEPE 13:14 → NEDH 14:52 → N04B 17:12
PROVIDERS: ADMIT Internal Medicine; ATTEND Internal Medicine
DX: R07.89 Other chest pain (principal); I45.2 Bifascicular block; R51 Headache; I25.10 Atherosclerotic heart disease of native coronary artery without angina pectoris; I10 Essential (primary) hypertension; E78.00 Pure hypercholesterolemia, unspecified; E03.9 Hypothyroidism, unspecified; M19.90 Unspecified osteoarthritis, unspecified site; Z79.01 Long term (current) use of anticoagulants; Z79.82 Long term (current) use of aspirin; Z79.899 Other long term (current) drug therapy; Z95.5 Presence of coronary angioplasty implant and graft; Z85.118 Personal history of other malignant neoplasm of bronchus and lung; Z85.89 Personal history of malignant neoplasm of other organs and systems; Z82.49 Family history of ischemic heart disease and other diseases of the circulatory system
CPT/HCPCS: 71046; 80048; 80061; 82550; 83735; 84484; 85025; 85610; 85730; 93005; J1644; 96365; 96366; 96375; G0378

== ENCOUNTER 2017-07-21 11:44 | Observation (INO) | payer MEDICARE, BC ==
[2017-07-21] VITALS (7 sets, daily range): BP systolic 100–199; BP diastolic 56–88; PULSE 60–68; RESP 16–19; TEMP 97.5–98.4; O2SAT 96–98
[~2017-07-21] VITALS: Ht 180.3 cm; Wt 80.0 kg
[~2017-07-21 11:44] MED LIST changes: -ACIP20TA19 PO; +AMIO200T PO; -AMLO5TAB96 PO; +ASPI-183 PO; +ATOR80TA45 PO; -CELE200 PO; -COUM2TAB PO; +DILT1TAB4 PO; -DIOV320T PO; +ISOS30TA3 PO; -LEVO.075 PO; +LEVO75TA3 PO; -PACE200T4 PO; +PLAV75TA29 PO; -PRIN20TA2 PO; -TERA5CAP34 PO; +WARF-23 PO; -ZOCO40TA PO; -[UNRECOGNIZED DRUG - OTHER]
[2017-07-21] MEDS ORDERED: SODIUM CHLOR 0.9% 1000 ML INJ 1,000 ML IV SCH (12:28)
[2017-07-21] MEDS ORDERED: SODIUM CHLORIDE 0.9% FLUSH 10 ML FLUSH IV FLUSH PRN ×2 (12:30→15:30)
[2017-07-21 12:44] LABS: AUTOMATED NEUTROPHIL # 6.2 TH/MM3 (1.8-7.7); BASOPHIL % 0.6 % (0.0-2.0); EOSINOPHIL # 0.1 TH/MM3 (0-0.4); EOSINOPHIL % 1.1 % (0.0-4.0); HEMATOCRIT 33.3 % (39.0-51.0); HEMOGLOBIN 11.3 GM/DL (13.0-17.0); LYMPH % 4.9 % (9.0-44.0); LYMPHOCYTE # 0.4 TH/MM3 (1.0-4.8); MEAN CELL VOLUME 85.5 FL (80.0-100.0); MEAN CORPUSCULAR HGB CONC 33.9 % (32.0-36.0); MEAN PLATELET VOLUME 7.3 FL (7.0-11.0); MONO % 6.7 % (0.0-8.0); MONOCYTE # 0.5 TH/MM3 (0-0.9); NEUT % 86.7 % (16.0-70.0); PLATELET COUNT 239 TH/MM3 (150-450); RED BLOOD COUNT 3.89 MIL/MM3 (4.50-5.90); RED CELL DISTRIBUTION WIDTH 15.3 % (11.6-17.2); WHITE BLOOD COUNT 7.1 TH/MM3 (4.0-11.0)
[2017-07-21] MEDS ORDERED: LIPI20TA PO (12:50)
[2017-07-21] MEDS ORDERED: AMLO5TAB2 PO (12:50)
[2017-07-21] MEDS ORDERED: NORC5TAB PO (12:50)
[2017-07-21] MEDS ORDERED: NITR1SUB3 SL (12:50)
[2017-07-21] MEDS ORDERED: DIOV160T6 PO (12:58)
[2017-07-21] MEDS ORDERED: ACIP20TA19 PO (12:58)
--- NOTE | 2017-07-21 13:04 | PD ---
HPI Chief Complaint: Altered Mental Status Time Seen by Provider: 12:25 Travel History International Travel<30 days: No Contact w/Intl Traveler<30days: No Traveled to known affect area: No History of Present Illness HPI Is an 89-year-old man who presents to the emergency department complaining of chest pain. Confusion and dizziness. He states that he feels very confused. He feels like he cannot "sort things out". He does describe a spinning feeling and describes that when the symptoms overwhelmed him this morning he had to crawl on the floor to come out of his bedroom. He denies dizziness or vertigo now, but seems to have some difficulty answering questions. He lives at an adult facility but is an independent living. He normally drives, his car is apparently stranded in our oncology center because is not able to drive for the past several days. He reports he was just admitted to [facility] and was discharged yesterday. States he normally walks with a walker or cane, uses a wheelchair at times, but is otherwise independent. 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 He is not on chemotherapy right now. He also has a history of hypertension, hyperlipidemia, CAD, GERD, and A. fib. History Past Medical History Narrative Medical Hypertension Hyperlipidemia CAD GERD A. fib Lung cancer, squamous cell cancer in the neck Tetanus Vaccination: < 5 Years Influenza Vaccination: Yes Social History Alcohol Use: Yes (WINE DAILY) Tobacco Use: No Allergies-Medications (Allergen,Severity, Reaction): Coded Allergies: No Known Allergies (Verified Allergy, Unknown, 07/21/17) Reported Meds & Prescriptions Reported Meds & Active Scripts Active Isosorbide Mononitrate ER (Isosorbide Mononitrate) 30 Mg Sybil 30 Mg PO DAILY@ 07 30 Days Plavix (Clopidogrel Bisulfate) 75 Mg Tab 75 Mg PO DAILY 30 Days Reported Aciphex (Rabeprazole Sodium) 20 Mg Tab 20 Mg PO DAILY Diovan (Valsartan) 160 Mg Tab 160 Mg PO DAILY Nitroglycerin SL (Nitroglycerin) 0.4 Mg Subl 0.4 Mg SL DIRECTED PRN ONE TABLET UNDER THE TONGUE NEEDED FOR CHEST PAIN, MAY REPEAT EVERY FIVE MINUTES FOR A TOTAL OF 3 DOSES OR CALL 911 IF NO RELIEF Lipitor (Atorvastatin Calcium) 20 Mg Tab 20 Mg PO HS Amlodipine (Amlodipine Besylate) 5 Mg Tab 5 Mg PO DAILY [place] (Hydrocodone-Acetaminophen) 5 Mg-325 Mg Tab 1 Tab PO Q4H PRN Amiodarone (Amiodarone HCl) 200 Mg Tab 200 Mg PO DAILY Levothyroxine (Levothyroxine Sodium) 75 Mcg Tab 75 Mcg PO DAILY Warfarin 5 Mg Tab 5 Mg PO DAILY Aspirin Unknown Strength Tab 1 Tab PO DAILY Review of Systems Except as stated in HPI: all other systems reviewed are Neg Physical Exam Narrative GENERAL: An 89-year-old man, no acute distress. SKIN: Focused skin assessment warm/dry. HEAD: Atraumatic. Normocephalic. EYES: Pupils equal and round. No scleral icterus. No injection or drainage. ENT: No nasal bleeding or discharge. Mucous membranes pink and moist. NECK: Trachea midline. No JVD. CARDIOVASCULAR: Regular rate and rhythm. No murmur appreciated. RESPIRATORY: No accessory muscle use. Clear to auscultation. Breath sounds equal bilaterally. GASTROINTESTINAL: Abdomen soft, non-tender, nondistended. Hepatic and splenic margins not palpable. MUSCULOSKELETAL: No obvious deformities. No clubbing. No cyanosis. No edema. NEUROLOGICAL: Awake and alert, but with confusion. Finger to nose is a little bit unsteady. No obvious cranial nerve deficits. Motor grossly within normal limits. Gait is unsteady, requiring two-person assist. Normal speech. PSYCHIATRIC: Confused, directable, anxious. Data Data Last Documented VS Vital Signs Date Time Temp Pulse Resp B/P (MAP) Pulse Ox O2 Delivery O2 Flow Rate FiO2 07/21/17 12:33 98 Room Air 07/21/17 12:14 97.5 63 19 100/56 (71) Orders Orders Electrocardiogram (07/21/17 12:28) Complete Blood Count With Diff (07/21/17 12:28) Comprehensive Metabolic Panel (07/21/17 12:28) Urinalysis - C+S If Indicated (07/21/17 12:28) Chest, Single Ap (07/21/17 12:28) Ct Brain W/O Iv Contrast(Rout) (07/21/17 12:28) Blood Glucose (07/21/17 12:28) Ecg Monitoring (07/21/17 12:28) Iv Access Insert/Monitor (07/21/17 12:28) Oximetry (07/21/17 12:28) Sodium Chloride 0.9% Flush (Ns Flush) (07/21/17 12:30) Sodium Chlor 0.9% 1000 Ml Inj (Ns 1000 M (07/21/17 12:28) Alcohol (Ethanol) (07/21/17 12:28) Digoxin (07/21/17 12:42) Admit Order (Ed Use Only) (07/21/17 ) Labs Laboratory Tests Test 07/21/17 12:30 White Blood Count 7.1 TH/MM3 Red Blood Count 3.89 MIL/MM3 Hemoglobin 11.3 GM/DL Hematocrit 33.3 % Mean Corpuscular Volume 85.5 FL Mean Corpuscular Hemoglobin 29.0 PG Mean Corpuscular Hemoglobin Concent 33.9 % Red Cell Distribution Width 15.3 % Platelet Count 239 TH/MM3 Mean Platelet Volume 7.3 FL Neutrophils (%) (Auto) 86.7 % Lymphocytes (%) (Auto) 4.9 % Monocytes (%) (Auto) 6.7 % Eosinophils (%) (Auto) 1.1 % Basophils (%) (Auto) 0.6 % Neutrophils # (Auto) 6.2 TH/MM3 Lymphocytes # (Auto) 0.4 TH/MM3 Monocytes # (Auto) 0.5 TH/MM3 Eosinophils # (Auto) 0.1 TH/MM3 Basophils # (Auto) 0.0 TH/MM3 CBC Comment DIFF FINAL Differential Comment Blood Urea Nitrogen 30 MG/DL Creatinine 1.74 MG/DL Random Glucose 111 MG/DL Total Protein 7.1 GM/DL Albumin 3.2 GM/DL Calcium Level 8.7 MG/DL Alkaline Phosphatase 137 U/L Aspartate Amino Transf (AST/SGOT) 16 U/L Alanine Aminotransferase (ALT/SGPT) 16 U/L Total Bilirubin 0.6 MG/DL Sodium Level 140 MEQ/L Potassium Level 3.8 MEQ/L Chloride Level 108 MEQ/L Carbon Dioxide Level 22.5 MEQ/L Anion Gap 10 MEQ/L Estimat Glomerular Filtration Rate 37 ML/MIN Ethyl Alcohol Level LESS THAN 3 MG/DL MDM Medical Decision Making Medical Screen Exam Complete: Yes Emergency Medical Condition: Yes Interpretation(s) My review of EKG: Normal sinus rhythm at a rate of 66, sleeping ST depressions throughout, unclear etiology. Possible dig effect. Normal axis, right bundle branch block. Differential Diagnosis Metastatic malignancy, infection, confusion, delirium, adverse medication effect , other Narrative Course Medical decision making 89-year-old male with confusion unsteadiness and complaints of vertigo. Difficult history. Has metastatic malignancy. I do not see any imaging of the head. Concern for intracranial metastasis. Will check labs, CT, x-ray. We will try to get records from [facility]. FINAL: New vertigo, altered mental status, confusion. Etiology is unclear. Will need admission for further evaluation. Likely need MRI given malignancy. Diagnosis Primary Impression: Altered mental status Admitting Information Admitting Physician Requests: Admit Jong Edmonds MD Jul 21, 2017 13:04
[2017-07-21 13:07] LABS: ALBUMIN 3.2 GM/DL (3.4-5.0); AST (GOT) 16 U/L (15-37); BICARBONATE 22.5 MEQ/L (21.0-32.0); BLOOD UREA NITROGEN 30 MG/DL (7-18); CALCIUM 8.7 MG/DL (8.5-10.1); CHLORIDE 108 MEQ/L (98-107); CREATININE 1.74 MG/DL (0.60-1.30); GLOMERULAR FILTRATION RATE 37 ML/MIN (>89); GLUCOSE,RANDOM 111 MG/DL (74-106); SODIUM (NA) 140 MEQ/L (136-145)
--- NOTE | 2017-07-21 13:09 | RADRPT ---
EXAM DATE/TIME: 07/21/2017 12:47 [facility] COMPARISON: No previous studies available for comparison. INDICATIONS : Syncope. MEDICAL HISTORY : Hypertension. Carcinoma, lung. Hypercholesterolemia. SURGICAL HISTORY : Cardiac stents ENCOUNTER: Initial ACUITY: 1 day PAIN SCORE: 0/10 LOCATION: Bilateral chest FINDINGS: A single view of the chest demonstrates the lungs to be symmetrically aerated without evidence of mas s, infiltrate or effusion. The cardiomediastinal contours are unremarkable. Osseous structures are intact. CONCLUSION: No acute disease. Vargas Pride MD FACR on July 21, 2017 at 13:07 Board Certified Radiologist. This report was verified electronically.
[2017-07-21 13:11] LABS: ALKALINE PHOSPHATASE 137 U/L (45-117); ALT (GPT) 16 U/L (12-78); TOTAL BILIRUBIN ADULT 0.6 MG/DL (0.2-1.0); TOTAL PROTEIN 7.1 GM/DL (6.4-8.2)
--- NOTE | 2017-07-21 14:46 | RADRPT ---
EXAM DATE/TIME: 07/21/2017 14:26 [facility] COMPARISON: No previous studies available for comparison. INDICATIONS : Headache and dizziness RADIATION DOSE: 56.35 CTDIvol (mGy) MEDICAL HISTORY : Carcinoma, lung. Hypertension. SURGICAL HISTORY : Fusion, cervical. ENCOUNTER: Initial ACUITY: 1 day PAIN SCALE: 10/10 LOCATION: cranial TECHNIQUE: Multiple contiguous axial images were obtained of the head. Using automated exposure control and adj ustment of the mA and/or kV according to patient size, radiation dose was kept as low as reasonably a chievable to obtain optimal diagnostic quality images. DICOM format image data is available electro nically for review and comparison. FINDINGS: The ventricles are symmetric and normal in appearance. No abnormal extra-axial fluid accumulation is identified. There is no evidence of intracranial hemorrhage or mass. There is nothing to suggest acut e infarction. There is complete or near complete opacification of right frontal sinus, and left maxil rowan sinus. CONCLUSION: No acute intracranial findings Ko Paul MD on July 21, 2017 at 14:40 Board Certified Radiologist. This report was verified electronically.
[2017-07-21] MEDS ORDERED: IODIXANOL 320 MG/ML 10 ML VIAL (for Rad CT) IVCONTRAST ONE (15:21)
[2017-07-21] MEDS ORDERED: GADOBENATE DIM PF 529 MG/ML 20ML VIAL (for RAD MRI) IV ONE (15:21)
--- NOTE | 2017-07-21 15:27 | HHI.HP ---
[facility] Jasmyn Edgar D.O. Admission Diagnosis Altered mental status, confusion Diagnoses: (1) ARF (acute renal failure) (2) Metabolic encephalopathy Chief Complaint: Confusion Travel History International Travel<30 Days: No Contact w/Intl Traveler <30 Da: No Traveled to Known Affected Are: No History of Present Illness 89-year-old man with history of lung cancer, atrial fibrillation presents to the ED for evaluation of worsening symptoms of confusion and dizziness. Patient was released yesterday from an outside hospital where he has been treated for chest pain 2 days. Patient reports that this morning he woke up and was able to have coffee and step out of bed, however had to return back to bed because he was not feeling well. He describes a spinning feeling and states this episode was so overwhelmed that patient could not get out of bed on his own and had to crawl on the floor out of his bedroom. Head CT in the ED was without any evidence of intracranial abnormality. Patient has a history of squamous cell lung cancer with metastasis for which he is currently receiving radiation therapy, however missed one session yesterday. During my exam, patient was alert and oriented 3. He denies any bladder or bowel dysfunction. Review of Systems Except as stated in HPI: all other systems reviewed are Neg Past Family Social History Past Medical History A. fib Lung cancer, questionable head and neck cancer Arthritis Hypertension Port implanted He is on chemotherapy Patient also mentioned history of left pleural effusion Past Surgical History Cataract Cervical fusion Reported Medications Isosorbide Mononitrate ER (Isosorbide Mononitrate) 30 Mg Sybil 30 Mg PO DAILY@ 07 30 Days Plavix (Clopidogrel Bisulfate) 75 Mg Tab 75 Mg PO DAILY 30 Days Reported Aciphex (Rabeprazole Sodium) 20 Mg Tab 20 Mg PO DAILY Diovan (Valsartan) 160 Mg Tab 160 Mg PO DAILY Nitroglycerin SL (Nitroglycerin) 0.4 Mg Subl 0.4 Mg SL DIRECTED PRN ONE TABLET UNDER THE TONGUE NEEDED FOR CHEST PAIN, MAY REPEAT EVERY FIVE MINUTES FOR A TOTAL OF 3 DOSES OR CALL 911 IF NO RELIEF Lipitor (Atorvastatin Calcium) 20 Mg Tab 20 Mg PO HS Amlodipine (Amlodipine Besylate) 5 Mg Tab 5 Mg PO DAILY [place] (Hydrocodone-Acetaminophen) 5 Mg-325 Mg Tab 1 Tab PO Q4H PRN Amiodarone (Amiodarone HCl) 200 Mg Tab 200 Mg PO DAILY Levothyroxine (Levothyroxine Sodium) 75 Mcg Tab 75 Mcg PO DAILY Warfarin 5 Mg Tab 5 Mg PO DAILY Aspirin Unknown Strength Tab 1 Tab PO DAILY Allergies: Coded Allergies: No Known Allergies (Verified Allergy, Unknown, 07/21/17) Family History Mother with heart attack, father had a brain tumor Social History No tobacco or illicit drug abuse, patient admitted drinking wine every day Physical Exam Vital Signs Vital Signs Date Time Temp Pulse Resp B/P (MAP) Pulse Ox O2 Delivery O2 Flow Rate FiO2 07/21/17 12:33 98 Room Air 07/21/17 12:14 97.5 63 19 100/56 (71) 98 Physical Exam GENERAL: This is a well-nourished, well-developed patient, in no apparent distress. SKIN: No rashes, ecchymoses or lesions. Cool and dry. HEAD: Atraumatic. Normocephalic. No temporal or scalp tenderness. EYES: Pupils equal round and reactive. Extraocular motions intact. No scleral icterus. No injection or drainage. ENT: Nose without bleeding, purulent drainage or septal hematoma. Throat without erythema, tonsillar hypertrophy or exudate. Uvula midline. Airway patent. NECK: Trachea midline. No JVD or lymphadenopathy. Supple, nontender, no meningeal signs. CARDIOVASCULAR: Regular rate and rhythm without murmurs, gallops, or rubs. RESPIRATORY: Clear to auscultation. Breath sounds equal bilaterally. No wheezes , rales, or rhonchi. GASTROINTESTINAL: Abdomen soft, non-tender, nondistended. No hepato-splenomegaly , or palpable masses. No guarding. MUSCULOSKELETAL: Extremities without clubbing, cyanosis, or edema. No joint tenderness, effusion, or edema noted. No calf tenderness. Negative Homans sign bilaterally. NEUROLOGICAL: Awake and alert. Cranial nerves II through XII intact. Motor and sensory grossly within normal limits. Five out of 5 muscle strength in all muscle groups. Normal speech. Laboratory Laboratory Tests Test 07/21/17 12:30 White Blood Count 7.1 Red Blood Count 3.89 Hemoglobin 11.3 Hematocrit 33.3 Mean Corpuscular Volume 85.5 Mean Corpuscular Hemoglobin 29.0 Mean Corpuscular Hemoglobin Concent 33.9 Red Cell Distribution Width 15.3 Platelet Count 239 Mean Platelet Volume 7.3 Neutrophils (%) (Auto) 86.7 Lymphocytes (%) (Auto) 4.9 Monocytes (%) (Auto) 6.7 Eosinophils (%) (Auto) 1.1 Basophils (%) (Auto) 0.6 Neutrophils # (Auto) 6.2 Lymphocytes # (Auto) 0.4 Monocytes # (Auto) 0.5 Eosinophils # (Auto) 0.1 Basophils # (Auto) 0.0 CBC Comment DIFF FINAL Differential Comment Blood Urea Nitrogen 30 Creatinine 1.74 Random Glucose 111 Total Protein 7.1 Albumin 3.2 Calcium Level 8.7 Alkaline Phosphatase 137 Aspartate Amino Transf (AST/SGOT) 16 Alanine Aminotransferase (ALT/SGPT) 16 Total Bilirubin 0.6 Sodium Level 140 Potassium Level 3.8 Chloride Level 108 Carbon Dioxide Level 22.5 Anion Gap 10 Estimat Glomerular Filtration Rate 37 Ethyl Alcohol Level LESS THAN 3 Result Diagram: 07/21/17 1230 07/21/17 1230 Imaging Last Impressions Head CT 07/21/17 1228 Signed Impressions: Service Date/Time: Friday, July 21, 2017 14:26 - CONCLUSION: No acute intracranial findings Ko Paul MD Chest X-Ray 07/21/178 Signed Impressions: Service Date/Time: Friday, July 21, 2017 12:47 - CONCLUSION: No acute disease. Vargas Pride MD FACR Septic Shock Reassessment Septic shock perfusion: reassessment completed Caprini VTE Risk Assessment Caprini VTE Risk Assessment: Mod/High Risk (score >= 2) Caprini Risk Assessment Model Point Value = 1 Point Value = 2 Point Value = 3 Point Value = 5 Age 41-60 Minor surgery BMI > 25 kg/m2 Swollen legs Varicose veins or History of unexplained or recurrent spontaneous Oral contraceptives or hormone replacement Sepsis (< 1 month) Serious lung disease, including pneumonia (< 1 month) Abnormal pulmonary function Acute myocardial infarction Congestive heart failure (< 1 month) History of inflammatory bowel disease Medical patient at bed rest Age 61-74 Arthroscopic surgery Major open surgery (> 45 min) Laparoscopic surgery (> 45 min) Malignancy Confined to bed (> 72 hours) Immobilizing plaster cast Central venous access Age >= 75 History of VTE Family history of VTE Factor V Leiden Prothrombin [id number] Lupus anticoagulant Anticardiolipin antibodies Elevated serum homocysteine Heparin-induced thrombocytopenia Other congenital or acquired thrombophilia Stroke (< 1 month) Elective arthroplasty Hip, pelvis, or leg fracture Acute spinal cord injury (< 1 month) Prophylaxis Regimen Total Risk Factor Score Risk Level Prophylaxis Regimen 0-1 Low Early ambulation 2 Moderate Order ONE of the following: *Sequential Compression Device (SCD) *Heparin 5000 units SQ BID 3-4 Higher Order ONE of the following medications: *Heparin 5000 units SQ TID *Enoxaparin/Lovenox 40 mg SQ daily (WT < 150 kg, CrCl > 30 mL/min) *Enoxaparin/Lovenox 30 mg SQ daily (WT < 150 kg, CrCl > 10-29 mL/min) *Enoxaparin/Lovenox 30 mg SQ BID (WT < 150 kg, CrCl > 30 mL/min) AND/OR *Sequential Compression Device (SCD) 5 or more Highest Order ONE of the following medications: *Heparin 5000 units SQ TID (Preferred with Epidurals) *Enoxaparin/Lovenox 40 mg SQ daily (WT < 150 kg, CrCl > 30 mL/min) *Enoxaparin/Lovenox 30 mg SQ daily (WT < 150 kg, CrCl > 10-29 mL/min) *Enoxaparin/Lovenox 30 mg SQ BID (WT < 150 kg, CrCl > 30 mL/min) AND *Sequential Compression Device (SCD) Assessment and Plan Problem List: (1) Lung cancer ICD Code: C34.90 - Malignant neoplasm of unspecified part of unspecified bronchus or lung (2) Metabolic encephalopathy ICD Code: G93.41 - Metabolic encephalopathy (3) ARF (acute renal failure) ICD Code: N17.9 - Acute kidney failure, unspecified Assessment and Plan 89-year-old man with Metabolic versus toxic encephalopathy Patient with a history of lung cancer with metastases to the neck, will rule out CVA vs brain mets with brain MRI Head CT noted and reviewed by me without any intracranial abnormality Chest x-ray noted and reviewed by me without any pulmonary infiltrates Check ammonia level Hold all 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 Acute renal failure Prerenal, likely secondary to dehydration Gentle IV fluid hydration and avoid all nephrotoxic drug Soft BP Hold all antihypertensive medications for blood pressure<110/60 History of lung cancer Currently receiving radiation therapy, therefore will consult radiation oncology Atrial fibrillation Resume Coumadin when INR resulted Other chronic medical conditions Resume outpatient medications Atypical chest pain Although patient report resolution of symptoms, request medical records from [facility] as needed DVT prophylaxis: Bilateral SCDs Code Status Full code Discussed Condition With Patient, ED physician Jt Wall MD Jul 21, 2017 15:27
[2017-07-21] MEDS ORDERED: MAGNESIUM HYDROXIDE SUSP 30 ML CUP PO PRN (15:30)
[2017-07-21] MEDS ORDERED: ACETAMINOPHEN 325 MG TAB PO PRN ×2 (15:30)
[2017-07-21] MEDS ORDERED: RESP: ALBUTEROL 2.5 MG/IPRATROPIUM 0.5 MG NEB (PRN) NEB (15:30)
[2017-07-21] MEDS ORDERED: NALOXONE HCL 0.4 MG/ML AMP IV PUSH PRN (15:30)
[2017-07-21] MEDS ORDERED: ONDANSETRON HCL 4 MG/2 ML VIAL IVP PRN (15:30)
[2017-07-21] MEDS: SODIUM CHLOR 0.9% 1000 ML INJ 1,000 ML IV SCH (16:43)
[2017-07-21 17:06] LABS: INTERNATIONAL NORMALIZED RATIO 2.4 RATIO; PROTHROMBIN TIME - PATIENT 24.5 SEC (9.8-11.6)
--- NOTE | 2017-07-21 17:37 | MB ---
cc: Antwon Proctor MDJasmyn DATE: 07/21/2017 CHIEF COMPLAINT AND HISTORY OF PRESENT ILLNESS: This is an 89-year-old gentleman, known to me. He has received previous radiation treatment for skin metastases to lymphadenopathy in his neck. He responded to treatment well and unfortunately developed lung lesions. He has received stereotactic radiation treatment to one lesion, but over the past several weeks, has not been able to proceed with treatment. In the past 2 weeks, he was admitted to [facility] and underwent coronary artery stenting. He has a history of atrial fibrillation and weakness. He comes in today having problems with dizziness, unable to walk and extreme fatigue. He has had a CT scan of his head in the emergency room, which showed no specific abnormality and a chest x-ray, which was otherwise unremarkable. Today, at this moment, he is alert and oriented. He is lying comfortably in bed. His vital no specific abnormalities. He was afebrile, pulse of 63 and regular, respiratory rate of 19, blood pressure of 100/56 and his O2 saturation on room air was 98%. PAST MEDICAL AND SURGICAL HISTORY: 1. Atrial fibrillation. 2. Coronary artery disease with recent coronary artery stenting at [facility]. 3. 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 4. Arthritis. 5. Hypertension. 6. Previous cataract surgery. 7. Cervical fusion. ALLERGIES: NONE KNOWN. SOCIAL HISTORY: This gentleman lives his in a care center where there is some support, but they are independent. PHYSICAL EXAMINATION: GENERAL: He is alert and oriented. VITAL SIGNS: Stable as noted. HEAD AND NECK: There is no adenopathy. NECK: Lung salguero were clear. HEART: Sounds are normal. ABDOMEN: No abdominal masses or tenderness. EXTREMITIES: He is moving all limbs normally. ASSESSMENT AND PLAN: This gentleman is elderly and frail. I believe he is having recurrent cardiac symptoms which may be intermittent and is possibly related to his atrial fibrillation; however, this is not clear. He has complained of some left-sided headaches, and I would suggest that he have an MRI of his brain with and without contrast to rule out metastases, as he does have metastases to his lung as well. He has had intermittent pulmonary infections. He has not been able to proceed recently with radiation treatment. I think it would be of value to assess his lung, so I would also suggest a CT scan of his chest. Otherwise, of course, he will require ongoing observation and we will continue to follow him while in the hospital. MD FRANCHESCA Bowden/FERNANDO , 05:10 PM , 05:36 PM
--- NOTE | 2017-07-21 18:26 | RADRPT ---
EXAM DATE/TIME: 07/21/2017 17:49 [facility] COMPARISON: No previous studies available for comparison. INDICATIONS : History of lung cancer, evaluate for lung metastasis. IV CONTRAST: 75 cc Visipaque (iodixanol) IV RADIATION DOSE: 6.66 CTDIvol (mGy) MEDICAL HISTORY : Cardiovascular disease. Carcinoma, lung. Hypertension. SURGICAL HISTORY : Fusion, cervical. ENCOUNTER: Initial ACUITY: 2 days PAIN SCALE: 5/10 LOCATION: chest TECHNIQUE: Volumetric scanning of the chest was performed. Using automated exposure control and adjustment of t he mA and/or kV according to patient size, radiation dose was kept as low as reasonably achievable to obtain optimal diagnostic quality images. DICOM format image data is available electronically for review and comparison. Follow-up recommendations for detected pulmonary nodules are based at a minimum on nodule size and pa tient risk factors according to Fleischner Society Guidelines. FINDINGS: LUNGS: There are multiple bilateral pulmonary parenchymal nodules identified, largest a roughly 1 cm nodule in the anterior left lung apex with smaller nodules present elsewhere in both lungs. There is minimal probable atelectasis in the posterior lung bases. PLEURA: There is no pleural thickening or pleural effusion. MEDIASTINUM: The heart and great vessels demonstrate no acute abnormality. There is no mediastinal or hilar lymph adenopathy. Atherosclerotic calcifications, including within the coronaries. Prominent left hilar lym ph nodes, largest approaching 2 cm. Small hiatal hernia. AXILLAE: Within normal limits. No lymphadenopathy. SKELETAL: Within normal limits for patient age. MISCELLANEOUS: Left renal cysts. CONCLUSION: Bilateral pulmonary nodules. Left hilar lymphadenopathy. Ko Paul MD on July 21, 2017 at 18:21 Board Certified Radiologist. This report was verified electronically.
[2017-07-21] MEDS: SODIUM CHLORIDE 0.9% FLUSH 10 ML FLUSH IV FLUSH SCH (20:52)
[2017-07-21] MEDS: ATORVASTATIN 20 MG TAB PO SCH (20:57)
--- NOTE | 2017-07-21 23:08 | RADRPT ---
EXAM DATE/TIME: 07/21/2017 21:43 [facility] COMPARISON: CT BRAIN W/O CONTRAST, July 21, 2017, 14:26. INDICATIONS : Altered mental status. Left sided weakness CONTRAST: 16 cc Multihance (gadobenate) IV MEDICAL HISTORY : Cardiovascular disease. Carcinoma, lung. Hypertension SURGICAL HISTORY : Cervical Fusion ENCOUNTER: Initial ACUITY: 1 day PAIN SCORE: 0/10 LOCATION: Brain TECHNIQUE: Multiplanar, multisequence MRI of the brain was performed both prior to and following the administrat ion of paramagnetic contrast. FINDINGS: CEREBRUM: The ventricles are normal for age. No evidence of midline shift, mass lesion, hemorrhage or acute in farction. No extraaxial fluid collections are seen. The pituitary gland and suprasellar cistern are normal in configuration. WHITE MATTER: Mild white matter T2 prolongation which appears benign. POSTERIOR FOSSA: The cerebellum and brainstem are intact. The 4th ventricle is midline. The cerebellopontine angle is unremarkable. The cerebellar tonsils are normal in position. DIFFUSION IMAGING: No focal areas of restricted diffusion are seen. No evidence of acute infarction. EXTRACRANIAL: Moderate mucosal disease present in the right frontal sinus and left maxillary antrum. Slight less th an 2 cm cystic mass present in the left parotid gland. POST-CONTRAST: No abnormal areas of parenchymal or dural enhancement. No evidence of blood-brain barrier breakdown. CONCLUSION: No acute intracranial findings. Cystic left parotid mass Ko Paul MD on July 21, 2017 at 23:00 Board Certified Radiologist. This report was verified electronically.
[2017-07-22] MEDS: SODIUM CHLOR 0.9% 1000 ML INJ 1,000 ML IV SCH ×2 (03:55→15:52)
[2017-07-22 04:15] VITALS: BP 173/83; PULSE 67; RESP 17; TEMP 98.5; O2SAT 96
[2017-07-22] MEDS: LEVOTHYROXINE SODIUM 75 MCG TAB PO SCH (06:11)
[2017-07-22] MEDS: ISOSORBIDE MONONITRATE 30 MG CR TAB (IMDUR) PO SCH (06:11)
[2017-07-22 07:50] LABS: AUTOMATED NEUTROPHIL # 3.7 TH/MM3 (1.8-7.7); BASOPHIL % 0.6 % (0.0-2.0); EOSINOPHIL # 0.2 TH/MM3 (0-0.4); EOSINOPHIL % 3.2 % (0.0-4.0); HEMATOCRIT 34.5 % (39.0-51.0); HEMOGLOBIN 11.8 GM/DL (13.0-17.0); INTERNATIONAL NORMALIZED RATIO 2.2 RATIO; LYMPH % 12.5 % (9.0-44.0); LYMPHOCYTE # 0.6 TH/MM3 (1.0-4.8); MEAN CELL VOLUME 85.1 FL (80.0-100.0); MEAN CORPUSCULAR HGB CONC 34.1 % (32.0-36.0); MEAN PLATELET VOLUME 7.6 FL (7.0-11.0); MONO % 9.5 % (0.0-8.0); MONOCYTE # 0.5 TH/MM3 (0-0.9); NEUT % 74.2 % (16.0-70.0); PLATELET COUNT 245 TH/MM3 (150-450); PROTHROMBIN TIME - PATIENT 22.6 SEC (9.8-11.6); RED BLOOD COUNT 4.06 MIL/MM3 (4.50-5.90); RED CELL DISTRIBUTION WIDTH 14.9 % (11.6-17.2)
[2017-07-22 08:11] LABS: ALBUMIN 3.2 GM/DL (3.4-5.0); AST (GOT) 14 U/L (15-37); BLOOD UREA NITROGEN 24 MG/DL (7-18); CALCIUM 8.8 MG/DL (8.5-10.1); CHLORIDE 109 MEQ/L (98-107); CREATININE 1.14 MG/DL (0.60-1.30); GLOMERULAR FILTRATION RATE 60 ML/MIN (>89); GLUCOSE,RANDOM 91 MG/DL (74-106); SODIUM (NA) 142 MEQ/L (136-145)
[2017-07-22 08:12] LABS: ALT (GPT) 14 U/L (12-78)
[2017-07-22 08:14] VITALS: BP 145/65; PULSE 61; RESP 18; TEMP 97.5; O2SAT 97
[2017-07-22 08:15] LABS: ALKALINE PHOSPHATASE 136 U/L (45-117); TOTAL BILIRUBIN ADULT 0.4 MG/DL (0.2-1.0); TOTAL PROTEIN 7.2 GM/DL (6.4-8.2)
[2017-07-22] MEDS: CLOPIDOGREL 75 MG TAB PO SCH (09:37)
[2017-07-22] MEDS: SODIUM CHLORIDE 0.9% FLUSH 10 ML FLUSH IV FLUSH SCH ×2 (09:37→21:00)
[2017-07-22] MEDS: AMIODARONE 200 MG TAB PO SCH (09:37)
--- NOTE | 2017-07-22 09:37 | HHI.PR ---
Subjective Remarks in no acute distress. has on and off chest pain/tenderness. feels weak. d/w the PT at the bedside. Objective Vitals Vital Signs Date Time Temp Pulse Resp B/P (MAP) Pulse Ox O2 Delivery O2 Flow Rate FiO2 07/22/17 08:14 97.5 61 18 145/65 (91) 97 07/22/17 04:15 98.5 67 17 173/83 (113) 96 07/21/17 23:56 98.2 68 17 199/88 (125) 96 07/21/17 21:31 98.4 65 17 162/79 (106) 96 07/21/17 17:23 63 17 131/68 (89) 98 07/21/17 16:10 60 16 123/61 (81) 97 Room Air 07/21/17 14:12 62 19 107/61 (76) 98 Room Air 07/21/17 12:33 98 Room Air 07/21/17 12:14 97.5 63 19 100/56 (71) 98 I/O 07/21/17 07/21/17 07/21/17 07/22/17 07/22/17 07/22/17 07:00 15:00 23:00 07:00 15:00 23:00 Intake Total 1000 ml Balance 1000 ml Intake IV Total 1000 ml # Voids 2 Result Diagram: 07/22/17 0710 07/22/17 0710 Imaging Last Impressions Chest CT 07/21/17 1710 Signed Impressions: Service Date/Time: Friday, July 21, 2017 17:49 - CONCLUSION: Bilateral pulmonary nodules. Left hilar lymphadenopathy. Ko Paul MD Head CT 07/21/17 1228 Signed Impressions: Service Date/Time: Friday, July 21, 2017 14:26 - CONCLUSION: No acute intracranial findings Ko Paul MD Chest X-Ray 07/21/17 1228 Signed Impressions: Service Date/Time: Friday, July 21, 2017 12:47 - CONCLUSION: No acute disease. Vargas Pride MD FACR Brain MRI 07/21/17 0000 Signed Impressions: Service Date/Time: Friday, July 21, 2017 21:43 - CONCLUSION: No acute intracranial findings. Cystic left parotid mass Ko Paul MD Objective Remarks GENERAL: This is a well-nourished, well-developed patient, in no apparent distress. CARDIOVASCULAR: Regular rate and regular rhythm without murmurs, gallops, or rubs. RESPIRATORY: Clear to auscultation. Breath sounds equal bilaterally. No wheezes , rales, or rhonchi. chest is tender to touch. GASTROINTESTINAL: Abdomen soft, non-tender, nondistended. Normal, active bowel sounds MUSCULOSKELETAL: Extremities without clubbing, cyanosis, or edema. NEURO: Alert & Oriented x4 to person, place, time, situation. Moves all ext x4 Medications and IVs Inpatient Medications Acetaminophen (Tylenol) 650 mg Q6H PRN PO PAIN SCALE 1 TO 2; Start 07/21/17 at 15:30 Albuterol/ Ipratropium (Duoneb Neb) 1 ampule Q2HR NEB PRN NEB SOB/WHEEZING; Start 07/21/17 at 15:30 Amiodarone HCl (Cordarone) 200 mg DAILY PO ; Start 07/22/17 at 09:00 Atorvastatin Calcium (Lipitor) 20 mg HS PO Last administered on 07/21/17at 20:57 ; Start 07/21/17 at 21:00 Clopidogrel Bisulfate (Plavix) 75 mg DAILY PO ; Start 07/22/17 at 09:00 Isosorbide Mononitrate (Imdur) 30 mg DAILY@07 PO Last administered on at 06:11; Start 07/22/17 at 07:00 Levothyroxine Sodium (Synthroid) 75 mcg DAILY@0600 PO Last administered on 07/22at 06:11; Start 07/22/17 at 06:00 Magnesium Hydroxide (Milk Of Magnrosmery Liq) 30 ml Q12H PRN PO Mild constipation ; Start 07/21/17 at 15:30 Naloxone HCl (Narcan Inj) 0.4 mg UNSCH PRN IV PUSH SEE LABEL COMMENTS; Start at 15:30 Ondansetron HCl (Zofran Inj) 4 mg Q6H PRN IVP NAUSEA OR VOMITING; Start at 15:30 Pharmacy Profile Note 0 ml @ 0 mls/hr UNSCH OTHER ; Start 07/21/17 at 20:45 Sodium Chloride 1,000 ml @ 84 mls/hr [id number] IV Last administered on at 16:43; Start 07/21/17 at 16:00 Sodium Chloride (NS Flush) 2 ml BID IV FLUSH ; Start 07/21/17 at 21:00 Warfarin Sodium (Coumadin) 5 mg DAILY@1600 PO ; Start 07/22/17 at 16:00 A/P Problem List: (1) Lung cancer ICD Code: C34.90 - Malignant neoplasm of unspecified part of unspecified bronchus or lung (2) Metabolic encephalopathy ICD Code: G93.41 - Metabolic encephalopathy (3) ARF (acute renal failure) ICD Code: N17.9 - Acute kidney failure, unspecified Assessment and Plan Metabolic versus toxic encephalopathy Patient with a history of lung cancer with metastases to the neck. 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 Prerenal, likely secondary to dehydration Gentle IV fluid hydration and avoid all nephrotoxic drug Soft BP Hold all antihypertensive medications for blood pressure<110/60 History of lung cancer Currently receiving radiation therapy-radiation oncology consult appreciated. Atrial fibrillation Resumed Coumadin. Other chronic medical conditions Resumed outpatient medications Atypical chest pain Although patient report resolution of symptoms, request medical records from [facility] . DVT prophylaxis: Bilateral SCDs Discharge Planning awaiting PT evaluation. Omaira Caruso MD Jul 22, 2017 09:37
[2017-07-22 12:07] VITALS: BP 103/51; PULSE 65; RESP 18; TEMP 96.7; O2SAT 97
[2017-07-22 13:16] LABS: TROPONIN I LESS THAN 0.02 NG/ML (0.02-0.05)
[2017-07-22] MEDS ORDERED: CALCIUM CARBONATE 500 MG CHEWABLE TAB CHEW PRN (15:45)
[2017-07-22] MEDS ORDERED: FAMOTIDINE 20 MG TAB PO ONE (15:45)
--- NOTE | 2017-07-22 15:48 | EKG ---
Date Performed: 07/21/2017 Time Performed: 12:30:26 PTAGE: 89 years EKG: Sinus rhythm RIGHT BUNDLE BRANCH BLOCK ST DEPRESSION, CONSIDER SUBENDOCARDIAL INJURY Since previous tracing, no s ignificant change noted ABNORMAL ECG PREVIOUS TRACING : 06/29/2017 13.24 DOCTOR: Ezra Bee Interpretating Date/Time 07/22/2017 15:46:20
[2017-07-22] MEDS: WARFARIN SOD 5 MG TAB PO SCH (15:51)
[2017-07-22 15:56] VITALS: BP 193/93; PULSE 66; RESP 18; TEMP 96.3; O2SAT 99
[2017-07-22] MEDS ORDERED: ALUMINUM/MAGNESIUM/SIMETH 30 ML CUP PO ONE (16:45)
[2017-07-22 20:11] VITALS: BP 172/80; PULSE 67; RESP 16; TEMP 97.6; O2SAT 98
[2017-07-22 21:27] VITALS: O2SAT 98
[2017-07-22] MEDS: FAMOTIDINE 20 MG TAB PO SCH (23:41)
[2017-07-22] MEDS: ATORVASTATIN 20 MG TAB PO SCH (23:41)
[2017-07-23] VITALS (7 sets, daily range): BP systolic 120–203; BP diastolic 48–90; PULSE 48–73; RESP 16–20; TEMP 97.5–98.2; O2SAT 95–99
[2017-07-23] MEDS ORDERED: cloNIDine HCL 0.1 MG TAB PO ONE (01:45)
[2017-07-23 08:48] LABS: INTERNATIONAL NORMALIZED RATIO 2.1 RATIO; PROTHROMBIN TIME - PATIENT 21.2 SEC (9.8-11.6)
--- NOTE | 2017-07-23 08:56 | HHI.PR ---
Subjective Remarks in no acute distress. denies chest pain. has mild neck pain. Objective Vitals Vital Signs Date Time Temp Pulse Resp B/P (MAP) Pulse Ox O2 Delivery O2 Flow Rate FiO2 07/23/17 07:45 97.9 70 20 138/62 (87) 95 07/23/17 04:31 97.5 48 17 134/74 (94) 98 07/23/17 01:25 98.0 73 16 203/90 (127) 99 07/22/17 21:27 98 Nasal Cannula 07/22/17 20:11 97.6 67 16 172/80 (110) 98 07/22/17 15:56 96.3 66 18 193/93 (126) 99 07/22/17 12:07 96.7 65 18 103/51 (68) 97 I/O 07/22/17 07/22/17 07/22/17 07/23/17 07/23/17 07/23/17 07:00 15:00 23:00 07:00 15:00 23:00 # Voids 4 Result Diagram: 07/22/17 0710 07/22/17 0710 Imaging Last Impressions Chest CT 07/21/17 1710 Signed Impressions: Service Date/Time: Friday, July 21, 2017 17:49 - CONCLUSION: Bilateral pulmonary nodules. Left hilar lymphadenopathy. Ko Paul MD Head CT 07/21/17 1228 Signed Impressions: Service Date/Time: Friday, July 21, 2017 14:26 - CONCLUSION: No acute intracranial findings Ko Paul MD Chest X-Ray 07/21/17 1228 Signed Impressions: Service Date/Time: Friday, July 21, 2017 12:47 - CONCLUSION: No acute disease. Vargas Pride MD FACR Brain MRI 07/21/17 0000 Signed Impressions: Service Date/Time: Friday, July 21, 2017 21:43 - CONCLUSION: No acute intracranial findings. Cystic left parotid mass Ko Paul MD Objective Remarks GENERAL: This is a well-nourished, well-developed patient, in no apparent distress. CARDIOVASCULAR: Regular rate and regular rhythm without murmurs, gallops, or rubs. RESPIRATORY: Clear to auscultation. Breath sounds equal bilaterally. No wheezes , rales, or rhonchi. chest is tender to touch. GASTROINTESTINAL: Abdomen soft, non-tender, nondistended. Normal, active bowel sounds MUSCULOSKELETAL: Extremities without clubbing, cyanosis, or edema. NEURO: Alert & Oriented x4 to person, place, time, situation. Moves all ext x4 Medications and IVs Inpatient Medications Acetaminophen (Tylenol) 650 mg Q6H PRN PO PAIN SCALE 1 TO 2; Start 07/21/17 at 15:30 Al Hydrox/Mg Hydrox/Simethicone (Mag-Al Plus Susp Liq) 30 ml ONCE ONCE PO Last administered on 07/22/17at 17:39; Start 07/22/17 at 16:45; Stop 07/22/17 at 16:46; Status DC Albuterol/ Ipratropium (Duoneb Neb) 1 ampule Q2HR NEB PRN NEB SOB/WHEEZING; Start 07/21/17 at 15:30 Amiodarone HCl (Cordarone) 200 mg DAILY PO Last administered on 07/22/17at 09:37 ; Start 07/22/17 at 09:00 Atorvastatin Calcium (Lipitor) 20 mg HS PO Last administered on 07/22/17at 23:41 ; Start 07/21/17 at 21:00 Calcium Carbonate (Tums Chew) 500 mg Q6H PRN CHEW DYSPEPSIA OR HEARTBURN; Start 07/22/17 at 15:45 Clonidine (Catapres) 0.1 mg ONCE ONCE PO Last administered on 07/23/17at 01:45 ; Start 07/23/17 at 01:45; Stop 07/23/17 at 01:50; Status DC Clopidogrel Bisulfate (Plavix) 75 mg DAILY PO Last administered on 07/22/17at 09 :37; Start 07/22/17 at 09:00 Famotidine (Pepcid) 20 mg BID PO Last administered on 07/22/17at 23:41; Start at 21:00 Isosorbide Mononitrate (Imdur) 30 mg DAILY@07 PO Last administered on at 06:11; Start 07/22/17 at 07:00 Levothyroxine Sodium (Synthroid) 75 mcg DAILY@0600 PO Last administered on 07/22at 06:11; Start 07/22/17 at 06:00 Magnesium Hydroxide (Milk Of Magnesia Liq) 30 ml Q12H PRN PO Mild constipation ; Start 07/21/17 at 15:30 Naloxone HCl (Narcan Inj) 0.4 mg UNSCH PRN IV PUSH SEE LABEL COMMENTS; Start at 15:30 Ondansetron HCl (Zofran Inj) 4 mg Q6H PRN IVP NAUSEA OR VOMITING Last administered on 07/22/17at 17:39; Start 07/21/17 at 15:30 Pharmacy Profile Note 0 ml @ 0 mls/hr UNSCH OTHER ; Start 07/21/17 at 20:45 Sodium Chloride 1,000 ml @ 84 mls/hr [id number] IV Last administered on at 16:43; Start 07/21/17 at 16:00 Sodium Chloride (NS Flush) 2 ml BID IV FLUSH Last administered on 07/22/17at 09: 37; Start 07/21/17 at 21:00 Warfarin Sodium (Coumadin) 5 mg DAILY@1600 PO Last administered on 07/22/17at 15 :51; Start 07/22/17 at 16:00 A/P Problem List: (1) Lung cancer ICD Code: C34.90 - Malignant neoplasm of unspecified part of unspecified bronchus or lung (2) Metabolic encephalopathy ICD Code: G93.41 - Metabolic encephalopathy (3) ARF (acute renal failure) ICD Code: N17.9 - Acute kidney failure, unspecified Assessment and Plan Metabolic versus toxic encephalopathy 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 Prerenal, likely secondary to dehydration Gentle IV fluid hydration and avoid all nephrotoxic drug Soft BP Hold all antihypertensive medications for blood pressure<110/60 History of lung cancer Currently receiving radiation therapy-radiation oncology consult appreciated. Atrial fibrillation Resumed Coumadin. Other chronic medical conditions Resumed outpatient medications Atypical chest pain- now has resolved. [facility] notes reviewed; had cardiac cath this month and was evaluated by cardiology ; recommended the antianginal medications to be intensified. DVT prophylaxis: Bilateral SCDs Discharge Planning PT recommendations noted; will consult case management for SNF. Omaira Caruso MD Jul 23, 2017 08:56
[2017-07-23] MEDS ORDERED: FAMO20TA2 PO (08:58)
--- NOTE | 2017-07-23 08:59 | HHI.DCPOC ---
Discharge Care Plan Diagnosis: (1) Chest pain (2) Dehydration (3) ISAI (acute kidney injury) (4) HTN (hypertension) (5) Acid reflux Goals to Promote Your Health * To prevent worsening of your condition and complications * To maintain your health at the optimal level Directions to Meet Your Goals Take your medications as prescribed Follow your dietary instruction Follow activity as directed Keep your appointments as scheduled Take your immunizations and boosters as scheduled If your symptoms worsen call your PCP, if no PCP go to Urgent Care Center or Emergency Room Smoking is Dangerous to Your Health. Avoid second hand smoke Call the 24-hour hour crisis hotline for domestic abuse at Dolores Pierce PA-C Jul 23, 2017 8:59 am
[2017-07-23] MEDS: FAMOTIDINE 20 MG TAB PO SCH ×2 (10:14→21:41)
[2017-07-23] MEDS: CLOPIDOGREL 75 MG TAB PO SCH (10:14)
[2017-07-23] MEDS: SODIUM CHLOR 0.9% 1000 ML INJ 1,000 ML IV SCH ×3 (10:14→21:42)
[2017-07-23] MEDS: AMIODARONE 200 MG TAB PO SCH (10:15)
[2017-07-23] MEDS: LEVOTHYROXINE SODIUM 75 MCG TAB PO SCH (10:15)
[2017-07-23] MEDS: ISOSORBIDE MONONITRATE 30 MG CR TAB (IMDUR) PO SCH (10:16)
[2017-07-23] MEDS: SODIUM CHLORIDE 0.9% FLUSH 10 ML FLUSH IV FLUSH SCH ×2 (10:17→21:00)
[2017-07-23] MEDS: amLODIPine BESYLATE 5 MG TAB PO SCH (10:18)
[2017-07-23] MEDS: WARFARIN SOD 5 MG TAB PO SCH (16:46)
[2017-07-23] MEDS ORDERED: amLODIPine BESYLATE 5 MG TAB PO ONE (21:30)
[2017-07-23] MEDS: ATORVASTATIN 20 MG TAB PO SCH (21:41)
[2017-07-24] VITALS (7 sets, daily range): BP systolic 124–168; BP diastolic 62–82; PULSE 60–80; RESP 16–18; TEMP 98–98.3; O2SAT 95–96
[2017-07-24] MEDS: LEVOTHYROXINE SODIUM 75 MCG TAB PO SCH (07:06)
[2017-07-24] MEDS: ISOSORBIDE MONONITRATE 30 MG CR TAB (IMDUR) PO SCH (07:06)
--- NOTE | 2017-07-24 08:15 | HHI.PR ---
Subjective Remarks Follow up for encephalopathy, ISAI, afib, atypical chest pain. The patient reports feeling better again today. He denies any headache, lightheadedness, dizziness, chest pain, shortness of breath, or abdominal complaints. He is tolerating oral intake. He is agreeable to go to rehab, awaiting placement. Objective Vitals Vital Signs Date Time Temp Pulse Resp B/P (MAP) Pulse Ox O2 Delivery O2 Flow Rate FiO2 07/24/17 08:06 98.0 63 18 124/64 (84) 96 07/24/17 04:07 98.2 60 17 95 164/82 (109) 07/24/17 00:29 156/62 (93) Automatic Cuff 07/23/17 23:56 98.1 60 18 186/83 (117) 97 07/23/17 20:55 98.2 64 18 176/78 (110) 97 07/23/17 16:52 98.2 70 20 120/48 (72) 96 07/23/17 12:36 97.9 68 128/60 (82) 98 07/23/17 10:31 Nasal Cannula 2.00 I/O 07/23/17 07/23/17 07/23/17 07/24/17 07/24/17 07/24/17 07:00 15:00 23:00 07:00 15:00 23:00 Intake Total 500 ml Balance 500 ml Intake Oral 500 ml Result Diagram: 07/22/17 0710 07/22/17 0710 Imaging Last Impressions Chest CT 07/21/17 1710 Signed Impressions: Service Date/Time: Friday, July 21, 2017 17:49 - CONCLUSION: Bilateral pulmonary nodules. Left hilar lymphadenopathy. Ko Paul MD Head CT 07/21/17 1228 Signed Impressions: Service Date/Time: Friday, July 21, 2017 14:26 - CONCLUSION: No acute intracranial findings Ko Paul MD Chest X-Ray 07/21/178 Signed Impressions: Service Date/Time: Friday, July 21, 2017 12:47 - CONCLUSION: No acute disease. Vargas Pride MD FACR Brain MRI 07/21/17 0000 Signed Impressions: Service Date/Time: Friday, July 21, 2017 21:43 - CONCLUSION: No acute intracranial findings. Cystic left parotid mass Ko Paul MD Objective Remarks GENERAL: Well-developed, well-nourished pleasant elderly male patient in NAD. SKIN: Warm and dry. HEENT: Atraumatic. Normocephalic. Mucous membranes pink and moist. NECK: Trachea midline. CARDIOVASCULAR: Regular rate and rhythm. No murmur appreciated. RESPIRATORY: No accessory muscle use. Clear to auscultation. Breath sounds equal bilaterally. GASTROINTESTINAL: Abdomen soft, non-tender, nondistended. MUSCULOSKELETAL: Extremities without clubbing, cyanosis, or edema. No obvious deformities. NEUROLOGICAL: Awake and alert. No obvious cranial nerve deficits. Motor grossly within normal limits. Normal speech. PSYCHIATRIC: Appropriate mood and affect; insight and judgment normal. Medications and IVs Current Medications Medications (Trade) Dose Ordered Sig/Alber Route Start Time Stop Time Status Last Admin (NS Flush) 2 ml UNSCH PRN IV FLUSH 07/21/17 15:30 (NS Flush) 2 ml BID IV FLUSH 07/21/17 21:00 07/23/17 10:17 (Tylenol) 650 mg Q4H PRN PO 07/21/17 15:30 (Zofran Inj) 4 mg Q6H PRN IVP 07/21/17 15:30 07/22/17 17:39 (Tylenol) 650 mg Q6H PRN PO 07/21/17 15:30 (Narcan Inj) 0.4 mg UNSCH PRN IV PUSH 07/21/17 15:30 (Milk Of Magnesia Liq) 30 ml Q12H PRN PO 07/21/17 15:30 (Duoneb Neb) 1 ampule Q2HR NEB PRN NEB 07/21/17 15:30 (Cordarone) 200 mg DAILY PO 07/22/17 09:00 07/23/17 10:15 (Lipitor) 20 mg HS PO 07/21/17 21:00 07/23/17 21:41 (Plavix) 75 mg DAILY PO 07/22/17 09:00 07/23/17 10:14 (Imdur) 30 mg DAILY@07 PO 07/22/17 07:00 07/24/17 07:06 (Synthroid) 75 mcg DAILY@0600 PO 07/22/17 06:00 07/24/17 07:06 (Coumadin) 5 mg DAILY@1600 PO 07/22/17 16:00 07/23/17 16:46 Pharmacy Profile Note 0 ml @ 0 mls/hr UNSCH OTHER 07/21/17 20:45 (Pepcid) 20 mg BID PO 07/22/17 21:00 07/23/17 21:41 (Tums Chew) 500 mg Q6H PRN CHEW 07/22/17 15:45 (Norvasc) 5 mg DAILY PO 07/23/17 10:00 07/23/17 10:18 (Diovan) 160 mg DAILY PO 07/24/17 09:00 A/P Problem List: (1) Lung cancer ICD Code: C34.90 - Malignant neoplasm of unspecified part of unspecified bronchus or lung (2) Metabolic encephalopathy ICD Code: G93.41 - Metabolic encephalopathy (3) ARF (acute renal failure) ICD Code: N17.9 - Acute kidney failure, unspecified Assessment and Plan 89-year-old male with history of lung cancer, afib, arthritis, HTN, port placement, presents with confusion and dizziness. Metabolic versus toxic encephalopathy: suspect secondary to dehydration. 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 -Prerenal, likely secondary to dehydration -Given gentle IV fluid hydration and avoid all nephrotoxic drug -Encourage oral intake Soft BP: BP initially low upon arrival likely secondary to dehydration -Hold all antihypertensive medications for blood pressure<110/60 -BP started to increase, restarted patient's home medications slowly including norvasc and diovan History of lung cancer -Currently receiving radiation therapy-radiation oncology consult appreciated. Atrial fibrillation: chronic, rate controlled -Resumed patient's Amiodarone, Coumadin. -Monitor INR Other chronic medical conditions -Resumed outpatient medications Atypical chest pain- now has resolved. -Troponin negative and EKG without acute ischemic changes -[facility] notes reviewed; had cardiac cath this month and was evaluated by cardiology ; recommended the antianginal medications to be intensified. -Chest pain currently resolved DVT prophylaxis: Bilateral SCDs Discharge Planning Discharge to SNF when arrangements made by case management. Attending Statement patient was seen and examined today. looks fairly comfortable. denies any new complaints. awaiting discharge to rehab. Dolores Pierce PA-C Jul 24, 2017 08:15 Omaira Caruso MD Jul 24, 2017 10:56
[2017-07-24] MEDS: SODIUM CHLORIDE 0.9% FLUSH 10 ML FLUSH IV FLUSH SCH ×2 (09:00→22:49)
--- NOTE | 2017-07-24 09:22 | EKG ---
Date Performed: 07/22/2017 Time Performed: 12:56:19 PTAGE: 89 years EKG: Sinus rhythm POSSIBLE RIGHT VENTRICULAR CONDUCTION DELAY MODERATE ST DEPRESSION PROLONGED QT INTERVAL ABNORMAL EC G PREVIOUS TRACING : 07/21/2017 12.30 DOCTOR: Nasir Melgar Interpretating Date/Time 07/24/2017 09:17:04
[2017-07-24 09:51] LABS: INTERNATIONAL NORMALIZED RATIO 2.4 RATIO; PROTHROMBIN TIME - PATIENT 24.2 SEC (9.8-11.6)
[2017-07-24] MEDS: CLOPIDOGREL 75 MG TAB PO SCH (11:08)
[2017-07-24] MEDS: FAMOTIDINE 20 MG TAB PO SCH ×2 (11:09→22:48)
[2017-07-24] MEDS: VALSARTAN 160 MG TAB PO SCH (11:09)
[2017-07-24] MEDS: AMIODARONE 200 MG TAB PO SCH (11:09)
[2017-07-24] MEDS: amLODIPine BESYLATE 5 MG TAB PO SCH (11:10)
--- NOTE | 2017-07-24 12:01 | HHI.FF ---
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 My clinical findings support the need for the requested home health care services because: Ltd mobility - disease progression Deconditioned w/ increased weakness Med compliance is questionable Limited ability to care for self I certify that my clinical findings support that this patient is homebound because: Unsteady gait/balance Unsafe to leave home unassisted Unable to use public transportation Dolores Pierce PA-C Jul 24, 2017 12:01
[2017-07-24] MEDS: WARFARIN SOD 5 MG TAB PO SCH (18:55)
[2017-07-24] MEDS: ATORVASTATIN 20 MG TAB PO SCH (22:48)
[2017-07-25] VITALS (7 sets, daily range): BP systolic 100–180; BP diastolic 58–86; PULSE 67–73; RESP 16–18; TEMP 97.3–98.5; O2SAT 95–97
[2017-07-25] MEDS: LEVOTHYROXINE SODIUM 75 MCG TAB PO SCH (06:39)
[2017-07-25] MEDS: ISOSORBIDE MONONITRATE 30 MG CR TAB (IMDUR) PO SCH (06:40)
--- NOTE | 2017-07-25 08:17 | HHI.PR ---
Subjective Remarks Follow up for encephalopathy, ISAI, afib, atypical chest pain. The patient reports constant upper anterior chest pain, worse with cough and reproducible with palpation. He states this is due to a growth on his bone. He otherwise denies any other medical complaints including no headache, lightheadedness, dizziness, shortness of breath, or abdominal complaints. He is agreeable to go to rehab if this can be arranged. Objective Vitals Vital Signs Date Time Temp Pulse Resp B/P (MAP) Pulse Ox O2 Delivery O2 Flow Rate FiO2 07/25/17 07:45 97.8 68 18 107/68 (81) 96 07/25/17 03:36 97.3 67 17 177/86 (116) 97 07/25/17 00:33 97.3 73 16 180/86 (117) 96 07/24/17 20:08 98.3 80 16 134/64 (87) 96 07/24/17 16:06 98.2 68 18 168/77 (107) 96 07/24/17 11:56 98.0 63 18 138/66 (90) 95 07/24/17 11:17 137/67 (90) I/O 07/24/17 07/24/17 07/24/17 07/25/17 07/25/17 07/25/17 07:00 15:00 23:00 07:00 15:00 23:00 Intake Total 600 ml Balance 600 ml Intake Oral 600 ml # Voids 4 Result Diagram: 07/22/17 0710 07/22/17 0710 Imaging Last Impressions Chest CT 07/21/17 1710 Signed Impressions: Service Date/Time: Friday, July 21, 2017 17:49 - CONCLUSION: Bilateral pulmonary nodules. Left hilar lymphadenopathy. Ko Paul MD Head CT 07/21/17 1228 Signed Impressions: Service Date/Time: Friday, July 21, 2017 14:26 - CONCLUSION: No acute intracranial findings Ko Paul MD Chest X-Ray 07/21/17 1228 Signed Impressions: Service Date/Time: Friday, July 21, 2017 12:47 - CONCLUSION: No acute disease. Vargas Pride MD FACR Brain MRI 07/21/17 0000 Signed Impressions: Service Date/Time: Friday, July 21, 2017 21:43 - CONCLUSION: No acute intracranial findings. Cystic left parotid mass Ko Paul MD Objective Remarks GENERAL: Well-developed, well-nourished pleasant elderly male patient in NAD. SKIN: Warm and dry. HEENT: Atraumatic. Normocephalic. Mucous membranes pink and moist. NECK: Trachea midline. CARDIOVASCULAR: Regular rate and rhythm. No murmur appreciated. Left upper anterior chest at sternoclavicular joint mildly tender to palpation. RESPIRATORY: No accessory muscle use. Clear to auscultation. Breath sounds equal bilaterally. GASTROINTESTINAL: Abdomen soft, non-tender, nondistended. MUSCULOSKELETAL: Extremities without clubbing, cyanosis, or edema. No obvious deformities. NEUROLOGICAL: Awake and alert. No obvious cranial nerve deficits. Motor grossly within normal limits. Normal speech. PSYCHIATRIC: Appropriate mood and affect; insight and judgment normal. Medications and IVs Current Medications Medications (Trade) Dose Ordered Sig/Alber Route Start Time Stop Time Status Last Admin (NS Flush) 2 ml UNSCH PRN IV FLUSH 07/21/17 15:30 (NS Flush) 2 ml BID IV FLUSH 07/21/17 21:00 07/24/17 22:49 (Tylenol) 650 mg Q4H PRN PO 07/21/17 15:30 (Zofran Inj) 4 mg Q6H PRN IVP 07/21/17 15:30 07/22/17 17:39 (Tylenol) 650 mg Q6H PRN PO 07/21/17 15:30 (Narcan Inj) 0.4 mg UNSCH PRN IV PUSH 07/21/17 15:30 (Milk Of Magnesia Liq) 30 ml Q12H PRN PO 07/21/17 15:30 (Duoneb Neb) 1 ampule Q2HR NEB PRN NEB 07/21/17 15:30 (Cordarone) 200 mg DAILY PO 07/22/17 09:00 07/24/17 11:09 (Lipitor) 20 mg HS PO 07/21/17 21:00 07/24/17 22:48 (Plavix) 75 mg DAILY PO 07/22/17 09:00 07/24/17 11:08 (Imdur) 30 mg DAILY@07 PO 07/22/17 07:00 07/25/17 06:40 (Synthroid) 75 mcg DAILY@0600 PO 07/22/17 06:00 07/25/17 06:39 (Coumadin) 5 mg DAILY@1600 PO 07/22/17 16:00 07/24/17 18:55 Pharmacy Profile Note 0 ml @ 0 mls/hr UNSCH OTHER 07/21/17 20:45 (Pepcid) 20 mg BID PO 07/22/17 21:00 07/24/17 22:48 (Tums Chew) 500 mg Q6H PRN CHEW 07/22/17 15:45 (Norvasc) 5 mg DAILY PO 07/23/17 10:00 07/24/17 11:10 (Diovan) 160 mg DAILY PO 07/24/17 09:00 07/24/17 11:09 A/P Problem List: (1) Lung cancer ICD Code: C34.90 - Malignant neoplasm of unspecified part of unspecified bronchus or lung (2) Metabolic encephalopathy ICD Code: G93.41 - Metabolic encephalopathy (3) ARF (acute renal failure) ICD Code: N17.9 - Acute kidney failure, unspecified Assessment and Plan 89-year-old male with history of lung cancer, afib, arthritis, HTN, port placement, presents with confusion and dizziness. Metabolic versus toxic encephalopathy: suspect secondary to dehydration. 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 -Head CT/MRI brain reviewed, no acute intracranial abnormality -Chest x-ray noted without any pulmonary infiltrates -Hold all RECORDIST depressing medications -Mentation improved -PT consulted, recommending rehab Acute renal failure- improved. -Prerenal, likely secondary to dehydration -Given gentle IV fluid hydration and avoid all nephrotoxic drug -Encourage oral intake Soft BP: BP initially low upon arrival likely secondary to dehydration -Hold all antihypertensive medications for blood pressure<110/60 -BP started to increase, restarted patient's home medications slowly including norvasc and diovan History of lung cancer -Currently receiving radiation therapy -radiation oncology consult appreciated. Atrial fibrillation: chronic, rate controlled -Resumed patient's Amiodarone, Coumadin. -Monitor INR Other chronic medical conditions -Resumed outpatient medications Atypical chest pain- now has resolved. Pain reproducible, likely musculoskeletal. -Troponin negative and EKG without acute ischemic changes -[facility] notes reviewed; had cardiac cath this month and was evaluated by cardiology ; recommended the antianginal medications to be intensified. -Chest pain currently resolved DVT prophylaxis: Bilateral SCDs Discharge Planning Discharge to SNF when arrangements made by case management, hopefully tomorrow. Dolores Pierce PA-C Jul 25, 2017 8:17 am
[2017-07-25 08:46] LABS: INTERNATIONAL NORMALIZED RATIO 2.6 RATIO; PROTHROMBIN TIME - PATIENT 26.4 SEC (9.8-11.6)
[2017-07-25] MEDS: SODIUM CHLORIDE 0.9% FLUSH 10 ML FLUSH IV FLUSH SCH ×2 (09:00→22:00)
[2017-07-25] MEDS: FAMOTIDINE 20 MG TAB PO SCH ×2 (10:22→22:00)
[2017-07-25] MEDS: AMIODARONE 200 MG TAB PO SCH (10:23)
[2017-07-25] MEDS: amLODIPine BESYLATE 5 MG TAB PO SCH (10:23)
[2017-07-25] MEDS: CLOPIDOGREL 75 MG TAB PO SCH (10:23)
[2017-07-25] MEDS: VALSARTAN 160 MG TAB PO SCH (10:26)
[2017-07-25] MEDS: WARFARIN SOD 5 MG TAB PO SCH (17:37)
[2017-07-25] MEDS: ATORVASTATIN 20 MG TAB PO SCH (22:00)
[2017-07-25] MEDS ORDERED: amLODIPine BESYLATE 5 MG TAB PO ONE (22:30)
[2017-07-26] VITALS (7 sets, daily range): BP systolic 101–158; BP diastolic 51–71; PULSE 62–74; RESP 16–17; TEMP 96.4–98.5; O2SAT 96–99
[2017-07-26] MEDS: LEVOTHYROXINE SODIUM 75 MCG TAB PO SCH (06:10)
[2017-07-26] MEDS: ISOSORBIDE MONONITRATE 30 MG CR TAB (IMDUR) PO SCH (06:10)
[2017-07-26 06:19] LABS: INTERNATIONAL NORMALIZED RATIO 2.8 RATIO; PROTHROMBIN TIME - PATIENT 27.8 SEC (9.8-11.6)
[2017-07-26] MEDS: AMIODARONE 200 MG TAB PO SCH (09:31)
[2017-07-26] MEDS: CLOPIDOGREL 75 MG TAB PO SCH (09:31)
[2017-07-26] MEDS: VALSARTAN 160 MG TAB PO SCH (09:31)
[2017-07-26] MEDS: FAMOTIDINE 20 MG TAB PO SCH ×2 (09:31→21:07)
[2017-07-26] MEDS: SODIUM CHLORIDE 0.9% FLUSH 10 ML FLUSH IV FLUSH SCH ×2 (09:32→21:00)
--- NOTE | 2017-07-26 11:48 | HHI.PR ---
Subjective Remarks Follow up for encephalopathy, ISAI, afib, atypical chest pain. The patient reports feeling well today. He has no medical complaints. He is looking forward to going to [facility] if possible. Vital signs reviewed, BP slightly elevated, Norvasc increased. Objective Vitals Vital Signs Date Time Temp Pulse Resp B/P (MAP) Pulse Ox O2 Delivery O2 Flow Rate FiO2 07/26/17 09:29 66 16 138/57 (84) 96 07/26/17 03:19 97.8 62 16 154/71 (98) 97 07/26/17 00:05 96.4 65 16 144/66 (92) 97 07/25/17 22:03 69 175/82 (113) 07/25/17 20:15 98.0 69 16 159/72 (101) 95 07/25/17 17:15 98.1 69 18 160/83 (108) 96 07/25/17 11:56 98.5 68 18 100/58 (72) 95 I/O 07/25/17 07/25/17 07/25/17 07/26/17 07/26/17 07/26/17 07:00 15:00 23:00 07:00 15:00 23:00 Intake Total 600 ml Output Total 0 ml Balance 600 ml Intake Oral 600 ml Output Stool Total 0 ml # Voids 5 Result Diagram: 07/22/17 0710 07/22/17 0710 Imaging Last Impressions Chest CT 07/21/17 1710 Signed Impressions: Service Date/Time: Friday, July 21, 2017 17:49 - CONCLUSION: Bilateral pulmonary nodules. Left hilar lymphadenopathy. Ko Paul MD Head CT 07/21/17 1228 Signed Impressions: Service Date/Time: Friday, July 21, 2017 14:26 - CONCLUSION: No acute intracranial findings Ko Paul MD Chest X-Ray 07/21/17 1228 Signed Impressions: Service Date/Time: Friday, July 21, 2017 12:47 - CONCLUSION: No acute disease. Vargas Pride MD FACR Brain MRI 07/21/17 0000 Signed Impressions: Service Date/Time: Friday, July 21, 2017 21:43 - CONCLUSION: No acute intracranial findings. Cystic left parotid mass Ko Paul MD Objective Remarks GENERAL: Well-developed, well-nourished pleasant elderly male patient in [facility]. SKIN: Warm and dry. HEENT: Atraumatic. Normocephalic. Mucous membranes pink and moist. NECK: Trachea midline. CARDIOVASCULAR: Regular rate and rhythm. No murmur appreciated. Left upper anterior chest at sternoclavicular joint mildly tender to palpation. RESPIRATORY: No accessory muscle use. Clear to auscultation. Breath sounds equal bilaterally. GASTROINTESTINAL: Abdomen soft, non-tender, nondistended. MUSCULOSKELETAL: Extremities without clubbing, cyanosis, or edema. No obvious deformities. NEUROLOGICAL: Awake and alert. No obvious cranial nerve deficits. Motor grossly within normal limits. Normal speech. PSYCHIATRIC: Appropriate mood and affect; insight and judgment normal. Medications and IVs Current Medications Medications (Trade) Dose Ordered Sig/Alber Route Start Time Stop Time Status Last Admin (NS Flush) 2 ml UNSCH PRN IV FLUSH 07/21/17 15:30 (NS Flush) 2 ml BID IV FLUSH 07/21/17 21:00 07/26/17 09:32 (Tylenol) 650 mg Q4H PRN PO 07/21/17 15:30 (Zofran Inj) 4 mg Q6H PRN IVP 07/21/17 15:30 07/22/17 17:39 (Tylenol) 650 mg Q6H PRN PO 07/21/17 15:30 (Narcan Inj) 0.4 mg UNSCH PRN IV PUSH 07/21/17 15:30 (Milk Of Magnesia Liq) 30 ml Q12H PRN PO 07/21/17 15:30 (Duoneb Neb) 1 ampule Q2HR NEB PRN NEB 07/21/17 15:30 (Cordarone) 200 mg DAILY PO 07/22/17 09:00 07/26/17 09:31 (Lipitor) 20 mg HS PO 07/21/17 21:00 07/25/17 22:00 (Plavix) 75 mg DAILY PO 07/22/17 09:00 07/26/17 09:31 (Imdur) 30 mg DAILY@07 PO 07/22/17 07:00 07/26/17 06:10 (Synthroid) 75 mcg DAILY@0600 PO 07/22/17 06:00 07/26/17 06:10 Pharmacy Profile Note 0 ml @ 0 mls/hr UNSCH OTHER 07/21/17 20:45 (Pepcid) 20 mg BID PO 07/22/17 21:00 07/26/17 09:31 (Tums Chew) 500 mg Q6H PRN CHEW 07/22/17 15:45 (Diovan) 160 mg DAILY PO 07/24/17 09:00 07/26/17 09:31 (Norvasc) 10 mg DAILY PO 07/26/17 09:00 07/26/17 09:31 (Coumadin) 3 mg DAILY@1600 PO 07/27/17 16:00 A/P Problem List: (1) Lung cancer ICD Code: C34.90 - Malignant neoplasm of unspecified part of unspecified bronchus or lung (2) Metabolic encephalopathy ICD Code: G93.41 - Metabolic encephalopathy (3) ARF (acute renal failure) ICD Code: N17.9 - Acute kidney failure, unspecified Assessment and Plan 89-year-old male with history of lung cancer, afib, arthritis, HTN, port placement, presents with confusion and dizziness. Metabolic versus toxic encephalopathy: suspect secondary to dehydration. 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 -Prerenal, likely secondary to dehydration -Given gentle IV fluid hydration and avoid all nephrotoxic drug -Encourage oral intake Soft BP: BP initially low upon arrival likely secondary to dehydration -Hold all antihypertensive medications for blood pressure<110/60 -BP started to increase, restarted patient's home medications slowly including norvasc and diovan -still not well controlled with systolic BP 150s, will increase home norvasc to 10mg daily History of lung cancer -Currently receiving radiation therapy -radiation oncology consult appreciated. Atrial fibrillation: chronic, rate controlled -Resumed patient's Amiodarone, Coumadin. -Monitor INR, therapeutic Other chronic medical conditions -Resumed outpatient medications Atypical chest pain- now has resolved. Pain reproducible, likely musculoskeletal. -Troponin negative and EKG without acute ischemic changes -[facility] notes reviewed; had cardiac cath this month and was evaluated by cardiology ; recommended the antianginal medications to be intensified. -Chest pain currently resolved DVT prophylaxis: Bilateral SCDs Discharge Planning Discharge to SNF when arrangements made by case management, hopefully going to [facility] today. Dolores Pierce PA-C Jul 26, 2017 11:48 am
[2017-07-26] MEDS ORDERED: AMLO10 PO (14:56)
--- NOTE | 2017-07-26 14:56 | HHI.DS ---
Discharge Summary Admission Date Jul 21, 2017 at 3:20 pm Discharge Date: Jul 26, 2017 Admitting Diagnosis Altered mental status, confusion (1) Lung cancer ICD Code: C34.90 - Malignant neoplasm of unspecified part of unspecified bronchus or lung (2) Metabolic encephalopathy ICD Code: G93.41 - Metabolic encephalopathy (3) ARF (acute renal failure) ICD Code: N17.9 - Acute kidney failure, unspecified Procedures None. Brief History - From Admission 89-year-old man with history of lung cancer, atrial fibrillation presents to the ED for evaluation of worsening symptoms of confusion and dizziness. Patient was released yesterday from an outside hospital where he has been treated for chest pain 2 days. Patient reports that this morning he woke up and was able to have coffee and step out of bed, however had to return back to bed because he was not feeling well. He describes a spinning feeling and states this episode was so overwhelmed that patient could not get out of bed on his own and had to crawl on the floor out of his bedroom. Head CT in the ED was without any evidence of intracranial abnormality. Patient has a history of squamous cell lung cancer with metastasis for which he is currently receiving radiation therapy, however missed one session yesterday. During my exam, patient was alert and oriented 3. He denies any bladder or bowel dysfunction. CBC/BMP: 07/22/17 0710 07/22/17 0710 Significant Findings Laboratory Tests Test 07/24/17 07:25 07/25/17 07:40 07/26/17 05:14 Prothrombin Time 24.2 SEC (9.8-11.6) 26.4 SEC (9.8-11.6) 27.8 SEC (9.8-11.6) Imaging Last Impressions Chest CT 07/21/17 1710 Signed Impressions: Service Date/Time: Friday, July 21, 2017 17:49 - CONCLUSION: Bilateral pulmonary nodules. Left hilar lymphadenopathy. Ko Paul MD Head CT 07/21/17 1228 Signed Impressions: Service Date/Time: Friday, July 21, 2017 14:26 - CONCLUSION: No acute intracranial findings Ko Paul MD Chest X-Ray 07/21/17 1228 Signed Impressions: Service Date/Time: Friday, July 21, 2017 12:47 - CONCLUSION: No acute disease. Vargas Pride MD FACR Brain MRI 07/21/17 0000 Signed Impressions: Service Date/Time: Friday, July 21, 2017 21:43 - CONCLUSION: No acute intracranial findings. Cystic left parotid mass Ko Paul MD PE at Discharge GENERAL: Well-developed, well-nourished pleasant elderly male patient in [facility]. SKIN: Warm and dry. HEENT: Atraumatic. Normocephalic. Mucous membranes pink and moist. NECK: Trachea midline. CARDIOVASCULAR: Regular rate and rhythm. No murmur appreciated. Chest nontender today. RESPIRATORY: No accessory muscle use. Clear to auscultation. Breath sounds equal bilaterally. GASTROINTESTINAL: Abdomen soft, non-tender, nondistended. MUSCULOSKELETAL: Extremities without clubbing, cyanosis, or edema. No obvious deformities. NEUROLOGICAL: Awake and alert. No obvious cranial nerve deficits. Motor grossly within normal limits. Normal speech. PSYCHIATRIC: Appropriate mood and affect; insight and judgment normal. Hospital Course 89-year-old male with history of lung cancer, afib, arthritis, HTN, port placement, presents with confusion and dizziness. Metabolic versus toxic encephalopathy: suspect secondary to dehydration. 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 Head CT/MRI brain reviewed, no acute intracranial abnormality. Chest x-ray noted without any pulmonary infiltrates. 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 Mentation much improved. PT consulted, recommending rehab, case management to assist with placement. Patient held in hospital over weekend due to possible placement on Wednesday, however unable to place patient into SNF secondary to insurance limitations. Attempted placement in [facility] however patient only agreeing to admission for 3 days then adamantly wants to go home, therefore patient not accepted to [facility]. Patient wishes to go home with [facility], case management to assist. Acute renal failure- improved. Prerenal, likely secondary to dehydration. Given gentle IV fluid hydration and avoid all nephrotoxic drug. Encouraged oral intake. Improved, stable for discharge. Soft BP: BP initially low upon arrival likely secondary to dehydration. Initially held all antihypertensive medications for blood pressure <110/60. BP started to increase, restarted patient's home medications slowly including norvasc and diovan. Still not well controlled with systolic BP 150s, increased home norvasc to 10mg daily. BP improved, stable for discharge. History of lung cancer. Radiation oncology consult appreciated, outpatient follow up. Atrial fibrillation: chronic, rate controlled. Resumed patient's Amiodarone, Coumadin. INR therapeutic. Atypical chest pain- now has resolved. Pain reproducible, likely musculoskeletal. Troponin negative and EKG without acute ischemic changes. [facility] notes reviewed; had cardiac cath this month and was evaluated by cardiology ; recommended the antianginal medications to be intensified. Chest pain currently resolved Pt Condition on Discharge: Stable Discharge Disposition: Disch w/ Home Health Serv Discharge Time: > 30 minutes Discharge Instructions DIET: Follow Instructions for: As Tolerated, No Restrictions Activities you can perform: Regular-No Restrictions Follow up Referrals: PCP Follow-up - 1 Week with Jasmyn Edgar D.o. New Medications: Famotidine (Famotidine) 20 Mg Tab 20 MG PO BID for GERD, #60 TAB Continued Medications: Amiodarone (Amiodarone) 200 Mg Tab 200 MG PO DAILY for Regulate Heart Beat, #30 TAB 0 Refills Amlodipine (Amlodipine) 5 Mg Tab 5 MG PO DAILY for Blood Pressure Management, #30 TAB 0 Refills Aspirin (Aspirin) Unknown Strength Tab 1 TAB PO DAILY, #30 TAB 0 Refills Atorvastatin (Lipitor) 20 Mg Tab 20 MG PO HS for Cholesterol Management, #30 TAB 0 Refills Clopidogrel (Plavix) 75 Mg Tab 75 MG PO DAILY for ACS for 30 Days, #30 TAB 1 Refill Hydrocodone-Acetaminophen ([place]) 5 Mg-325 Mg Tab 1 TAB PO Q4H PRN for PAIN, TAB 0 Refills Isosorbide Mononitrate ER (Isosorbide Mononitrate ER) 30 Mg Sybil 30 MG PO DAILY@07 for Chest Pain for 30 Days, #30 TAB Levothyroxine (Levothyroxine) 75 Mcg Tab 75 MCG PO DAILY for Thyroid, #30 TAB 0 Refills Nitroglycerin SL (Nitroglycerin SL) 0.4 Mg Subl 0.4 MG SL DIRECTED PRN for CHEST PAIN, #100 TAB.SL 0 Refills ONE TABLET UNDER THE TONGUE NEEDED FOR CHEST PAIN, MAY REPEAT EVERY FIVE MINUTES FOR A TOTAL OF 3 DOSES OR CALL 911 IF NO RELIEF Rabeprazole (Aciphex) 20 Mg Tab 20 MG PO DAILY for Reflux, #30 TAB 0 Refills Valsartan (Diovan) 160 Mg Tab 160 MG PO DAILY, #30 TAB 0 Refills Warfarin (Warfarin) 5 Mg Tab 5 MG PO DAILY for Blood Clot Prevention, #30 TAB 0 Refills Dolores Pierce PA-C Jul 26, 2017 2:56 pm
[2017-07-26] MEDS: ATORVASTATIN 20 MG TAB PO SCH (21:07)
[2017-07-27 04:30] VITALS: BP 149/78; PULSE 71; RESP 17; TEMP 98.3; O2SAT 96
[2017-07-27] MEDS: LEVOTHYROXINE SODIUM 75 MCG TAB PO SCH (06:55)
[2017-07-27 07:39] VITALS: BP 141/63; PULSE 68; RESP 18; TEMP 97.7; O2SAT 97
[2017-07-27] MEDS: FAMOTIDINE 20 MG TAB PO SCH (08:57)
[2017-07-27] MEDS: AMIODARONE 200 MG TAB PO SCH (08:57)
[2017-07-27] MEDS: CLOPIDOGREL 75 MG TAB PO SCH (08:57)
[2017-07-27] MEDS: VALSARTAN 160 MG TAB PO SCH (08:57)
[2017-07-27] MEDS: ISOSORBIDE MONONITRATE 30 MG CR TAB (IMDUR) PO SCH (08:57)
[2017-07-27] MEDS: SODIUM CHLORIDE 0.9% FLUSH 10 ML FLUSH IV FLUSH SCH (08:58)
--- NOTE | 2017-07-27 11:23 | HHI.PR ---
Subjective Remarks The patient was resting comfortably in bed. He said he was willing to go to rehab but he needs to get back home to his soon. He said that he was in the [place] and then went on to have multiple jobs over the years. He said that he fell down and broke his neck and was in a wheelchair for a while. Discussed with nursing. Objective Vitals Vital Signs Date Time Temp Pulse Resp B/P (MAP) Pulse Ox O2 Delivery O2 Flow Rate FiO2 07/27/17 07:39 97.7 68 18 141/63 (89) 97 07/27/17 04:30 98.3 71 17 149/78 (101) 96 07/26/17 23:52 98.5 68 17 140/60 (86) 99 07/26/17 20:33 98.5 70 17 109/63 (78) 97 07/26/17 16:18 98.0 74 16 158/70 (99) 97 07/26/17 13:18 97.6 66 16 101/51 (68) 96 I/O 07/26/17 07/26/17 07/26/17 07/27/17 07/27/17 07/27/17 06:59 14:59 22:59 06:59 14:59 22:59 Intake Total 200 ml 200 ml Balance 200 ml 200 ml Intake Oral 200 ml 200 ml Imaging Last Impressions Chest CT 07/21/17 1710 Signed Impressions: Service Date/Time: Friday, July 21, 2017 17:49 - CONCLUSION: Bilateral pulmonary nodules. Left hilar lymphadenopathy. Ko Paul MD Head CT 07/21/17 1228 Signed Impressions: Service Date/Time: Friday, July 21, 2017 14:26 - CONCLUSION: No acute intracranial findings Ko Paul MD Chest X-Ray 07/21/17 1228 Signed Impressions: Service Date/Time: Friday, July 21, 2017 12:47 - CONCLUSION: No acute disease. Vargas Pride MD FACR Brain MRI 07/21/17 0000 Signed Impressions: Service Date/Time: Friday, July 21, 2017 21:43 - CONCLUSION: No acute intracranial findings. Cystic left parotid mass Ko Paul MD Objective Remarks GENERAL: Well-developed, well-nourished pleasant elderly male patient in [facility]. SKIN: Warm and dry. HEENT: Atraumatic. Normocephalic. Mucous membranes pink and moist. NECK: Trachea midline. CARDIOVASCULAR: Regular rate and rhythm. No murmur appreciated. RESPIRATORY: No accessory muscle use. Clear to auscultation. Breath sounds equal bilaterally. GASTROINTESTINAL: Abdomen soft, non-tender, nondistended. MUSCULOSKELETAL: Extremities without clubbing, cyanosis, or edema. No obvious deformities. NEUROLOGICAL: Awake and alert. No obvious cranial nerve deficits. Motor grossly within normal limits. Normal speech. PSYCHIATRIC: Appropriate mood and affect; insight and judgment normal. Procedures None. Medications and IVs Current Medications Medications (Trade) Dose Ordered Sig/Alber Route Start Time Stop Time Status Last Admin (NS Flush) 2 ml UNSCH PRN IV FLUSH 07/21/17 15:30 (NS Flush) 2 ml BID IV FLUSH 07/21/17 21:00 07/27/17 08:58 (Tylenol) 650 mg Q4H PRN PO 07/21/17 15:30 (Zofran Inj) 4 mg Q6H PRN IVP 07/21/17 15:30 07/22/17 17:39 (Tylenol) 650 mg Q6H PRN PO 07/21/17 15:30 (Narcan Inj) 0.4 mg UNSCH PRN IV PUSH 07/21/17 15:30 (Milk Of Magnesia Liq) 30 ml Q12H PRN PO 07/21/17 15:30 (Duoneb Neb) 1 ampule Q2HR NEB PRN NEB 07/21/17 15:30 (Cordarone) 200 mg DAILY PO 07/22/17 09:00 07/27/17 08:57 (Lipitor) 20 mg HS PO 07/21/17 21:00 07/26/17 21:07 (Plavix) 75 mg DAILY PO 07/22/17 09:00 07/27/17 08:57 (Imdur) 30 mg DAILY@07 PO 07/22/17 07:00 07/27/17 08:57 (Synthroid) 75 mcg DAILY@0600 PO 07/22/17 06:00 07/27/17 06:55 Pharmacy Profile Note 0 ml @ 0 mls/hr UNSCH OTHER 07/21/17 20:45 (Pepcid) 20 mg BID PO 07/22/17 21:00 07/27/17 08:57 (Tums Chew) 500 mg Q6H PRN CHEW 07/22/17 15:45 (Diovan) 160 mg DAILY PO 07/24/17 09:00 07/27/17 08:57 (Norvasc) 10 mg DAILY PO 07/26/17 09:00 07/27/17 08:57 (Coumadin) 3 mg DAILY@1600 PO 07/27/17 16:00 Future Hold A/P Problem List: (1) Lung cancer ICD Code: C34.90 - Malignant neoplasm of unspecified part of unspecified bronchus or lung (2) Metabolic encephalopathy ICD Code: G93.41 - Metabolic encephalopathy (3) ARF (acute renal failure) ICD Code: N17.9 - Acute kidney failure, unspecified Assessment and Plan 89-year-old male with history of lung cancer, afib, arthritis, HTN, port placement, presents with confusion and dizziness. Metabolic versus toxic encephalopathy: suspect secondary to dehydration. 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 Scheduled to go to [facility] 07/27. Acute renal failure- improved. -Prerenal, likely secondary to dehydration -Given gentle IV fluid hydration and avoid all nephrotoxic drug -Encourage oral intake Soft BP: BP initially low upon arrival likely secondary to dehydration -Hold all antihypertensive medications for blood pressure<110/60 -BP started to increase, restarted patient's home medications slowly including Diovan. We increased Norvasc. History of lung cancer -Currently receiving radiation therapy -radiation oncology consult appreciated. - outpt follow-up. Atrial fibrillation: chronic, rate controlled -Resumed patient's Amiodarone, Coumadin. -Monitor INR, therapeutic Other chronic medical conditions -Resumed outpatient medications Atypical chest pain- now has resolved. Pain reproducible, likely musculoskeletal. -Troponin negative and EKG without acute ischemic changes -[facility] notes reviewed; had cardiac cath this month and was evaluated by cardiology ; recommended the antianginal medications to be intensified. -Chest pain currently resolved - outpt follow-up with cardiology. DVT prophylaxis: Bilateral SCDs, Coumadin Discharge Planning D/c to rehab Sayess,Jac. DO Jul 27, 2017 11:23
[2017-07-27] MEDS ORDERED: WARFARIN SOD 3 MG TAB PO SCH (16:00)
== END 2017-07-27 11:43 ==
LOC: NEPE 11:44 → NEDA 15:20 → NEPGCP 17:42
PROVIDERS: ADMIT Hospitalist; ATTEND Hospitalist
DX: C34.90 Malignant neoplasm of unspecified part of unspecified bronchus or lung (principal); C79.2 Secondary malignant neoplasm of skin; R41.82 Altered mental status, unspecified; G93.41 Metabolic encephalopathy; N17.9 Acute kidney failure, unspecified; E86.0 Dehydration; I10 Essential (primary) hypertension; I25.10 Atherosclerotic heart disease of native coronary artery without angina pectoris; K21.9 Gastro-esophageal reflux disease without esophagitis; I48.2 Chronic atrial fibrillation; E78.5 Hyperlipidemia, unspecified; Z79.01 Long term (current) use of anticoagulants; Z92.3 Personal history of irradiation; Z95.5 Presence of coronary angioplasty implant and graft; Z82.49 Family history of ischemic heart disease and other diseases of the circulatory system
CPT/HCPCS: 70450; 70553; 71045; 71260; 80053; 80162; 80307; 82550; 84484; 85025; 85610; 93005; 96361; 96374; 97110; 97163; 99285; A9577; G0378; G8987; G8988; J2405; J7030; Q9967